=== PATIENT | male | born 1940 | race Caucasian/White ===

== ENCOUNTER → 2019-01-25 13:25 | Outpatient (POV) | payer MEDICARE, SELFPAY | PROVIDERS: Visit Provider Dermatology | DX: L08.9 Local infection of the skin and subcutaneous tissue, unspecified (principal) | CPT/HCPCS: 87070; 87077; 87186; 87205 ==

== ENCOUNTER → 2019-05-10 11:54 | Outpatient (CLI) | payer MEDICARE, OTHER, SELFPAY ==
[2019-05-10 12:24] LABS: Basophils # 0.1 K/mm3 (0-0.2); Basophils % 0.9 % (0.1-2.0); Eosinophils # 0.3 K/mm3 (0.0-0.4); Eosinophils % 4.5 % (0.1-12.0); Hematocrit 26.8 % (42.0-52.0); Lymphocytes # 1.4 K/mm3 (0.7-4.5); Lymphocytes % 18.2 % (10-50); Mean Corpuscular HGB Conc 29.7 g/dL (31.8-35.4); Mean Corpuscular Volume 87.4 fl (80-94); Mean Platelet Volume 8.6 fl (7.4-10.4); Monocytes # 0.4 K/mm3 (0.1-1.0); Monocytes % 4.8 % (1.7-9.3); Neutrophils # 5.4 K/mm3 (1.8-7.8); Neutrophils % 71.5 % (37.0-80.0); Platelet Count 313 K/mm3 (142-424); Red Blood Count 3.07 M/mm3 (4.60-6.20); Red Cell Distribution Width 15.3 % (11.5-17.5); White Blood Count 7.6 K/mm3 (4.8-10.8)
[2019-05-10 14:06] LABS: Alanine Aminotransferase 15 U/L (12-78); Albumin Level 3.7 gm/dL (3.4-5.0); Albumin/Globulin Ratio 1.2 (1.1-1.8); Alkaline Phosphatase 140 U/L (46-116); Anion Gap 15.7 mEq/L (5-15); Aspartate Amino Transferase 11 U/L (15-37); Bilirubin,Total 0.3 mg/dL (0.2-1.0); Blood Urea Nitrogen 21 mg/dL (7-18); C-Reactive Protein 0.6 mg/dL (0.0-0.9); Calcium 8.7 mg/dL (8.5-10.1); Carbon Dioxide 22 mmol/L (21.0-32.0); Chloride 104 mmol/L (98-107); Estimated Glomerular Filt Rate 59 ml/min (>60); GFR (African American) 71 ML/MIN (>60); Globulin 3.2 gm/dl (1.3-3.2); Glucose 142 mg/dL (74-106); Potassium 4.7 mmoL/L (3.5-5.1); Sodium 137 mmol/L (136-145); Total Protein,Serum 6.9 gm/dL (6.4-8.2)
[2019-05-10 14:14] LABS: Erythrocyte Sedimentation Rate 71 mm/hr (0-20)
== END ==
PROVIDERS: Visit Provider Podiatrist
DX: L84 Corns and callosities (principal); E11.42 Type 2 diabetes mellitus with diabetic polyneuropathy
CPT/HCPCS: 36415; 80053; 83036; 85025; 85651; 86140; 87070; 87077; 87186; 87205

== ENCOUNTER → 2019-05-10 17:36 | Outpatient (CLI) | payer MEDICARE, OTHER, SELFPAY | PROVIDERS: Visit Provider Podiatrist | DX: E11.42 Type 2 diabetes mellitus with diabetic polyneuropathy (principal); Z79.84 Long term (current) use of oral hypoglycemic drugs; L84 Corns and callosities | CPT/HCPCS: 36415; 80053; 83036; 85025; 85651; 86140; 87070; 87077; 87186; 87205 ==

== ENCOUNTER → 2019-06-08 10:38 | Outpatient (CLI) | payer MEDICARE, SELFPAY | PROVIDERS: Visit Provider Nurse Practitioner | DX: Z51.89 Encounter for other specified aftercare (principal); E11.9 Type 2 diabetes mellitus without complications; Z79.84 Long term (current) use of oral hypoglycemic drugs | CPT/HCPCS: 87070; 87077; 87186; 87205 ==

== ENCOUNTER → 2019-10-03 14:28 | Outpatient (CLI) | payer MEDICARE, SELFPAY ==
[2019-10-03 14:47] LABS: Basophils % 0.8 % (0.1-2.0); Eosinophils # 0.2 K/mm3 (0.0-0.4); Eosinophils % 3.8 % (0.1-12.0); Hematocrit 31.6 % (42.0-52.0); Hemoglobin 10.1 g/dL (14.1-18.0); Lymphocytes # 1.3 K/mm3 (0.7-4.5); Lymphocytes % 23.1 % (10-50); Mean Corpuscular HGB Conc 31.9 g/dL (31.8-35.4); Mean Corpuscular Hemoglobin 28.1 pg (27.0-31.2); Mean Corpuscular Volume 88.1 fl (80-94); Mean Platelet Volume 9.6 fl (7.4-10.4); Monocytes # 0.3 K/mm3 (0.1-1.0); Monocytes % 4.7 % (1.7-9.3); Neutrophils # 3.9 K/mm3 (1.8-7.8); Neutrophils % 67.5 % (37.0-80.0); Platelet Count 205 K/mm3 (142-424); Red Blood Count 3.58 M/mm3 (4.60-6.20); Red Cell Distribution Width 17.1 % (11.5-17.5); White Blood Count 5.7 K/mm3 (4.8-10.8)
[2019-10-03 15:15] LABS: Erythrocyte Sedimentation Rate 19 mm/hr (0-20)
[2019-10-03 17:22] LABS: Alanine Aminotransferase 13 U/L (12-78); Albumin Level 4.1 g/dl (3.5-5.0); Albumin/Globulin Ratio 1.7 (1.1-1.8); Alkaline Phosphatase 76 U/L (38-126); Anion Gap 15.4 mEq/L (5-15); Aspartate Amino Transferase 18 U/L (17-59); Blood Urea Nitrogen 25 mg/dl (9-20); Calcium 9.4 mg/dl (8.4-10.2); Carbon Dioxide 23 mmol/L (22.0-30.0); Chloride 104 mmol/L (98-107); Estimated Glomerular Filt Rate 65 ml/min (>60); GFR (African American) 78 ML/MIN (>60); Globulin 2.4 g/dL (1.3-3.2); Glucose 183 mg/dl (74-100); Potassium 4.4 mmoL/L (3.5-5.1); Sodium 138 mmol/L (136-145); Total Protein,Serum 6.5 g/dl (6.3-8.2)
[2019-10-03 17:26] LABS: Bilirubin,Total < 0.1 mg/dl (0.2-1.3)
[2019-10-03 17:28] LABS: C-Reactive Protein 0.4 mg/L (0-4)
[2019-10-03 20:20] LABS: Hemoglobin A1C 6.8 % (4.0-6.0)
== END ==
PROVIDERS: Visit Provider Podiatrist
DX: Z51.89 Encounter for other specified aftercare (principal); L98.9 Disorder of the skin and subcutaneous tissue, unspecified; E11.42 Type 2 diabetes mellitus with diabetic polyneuropathy; Z79.84 Long term (current) use of oral hypoglycemic drugs
CPT/HCPCS: 36415; 80053; 83036; 85025; 85651; 86140

== ENCOUNTER → 2022-05-12 15:06 | Outpatient (CLI) | payer MEDICARE, SELFPAY ==
--- NOTE | 2022-05-12 15:12 | XR_ITS ---
FINAL REPORT CLINICAL HISTORY: COUGH FINDINGS: Two views of the chest were obtained. The heart size and pulmonary vascularity are within normal limits. The mediastinum is normal. No acute pulmonary abnormality is identified. There is no pneumothorax. The bony thorax is intact. IMPRESSION: No active cardiopulmonary disease. Reviewed, Interpreted and Dictated by Ben Quiroga III, MD Transcribed by Mayra Calixto Authenticated and [facility]
== END ==
PROVIDERS: PCP Family Medicine; Visit Provider Family Medicine
DX: R05.9 Cough, unspecified (principal)
CPT/HCPCS: 71046

== ENCOUNTER → 2023-02-24 23:37 | Outpatient (CLI) | payer MEDICARE, SELFPAY ==
[2023-02-24 18:55] LABS: Basophils % 0.7 % (0.1-2.0); Eosinophils # 0.7 K/mm3 (0.0-0.4); Eosinophils % 11.2 % (0.1-12.0); Hemoglobin 10.2 g/dL (14.1-18.0); Lymphocytes % 16.5 % (10-50); Mean Corpuscular Hemoglobin 29.4 pg (27.0-31.2); Mean Corpuscular Volume 94.8 fl (80-94); Mean Platelet Volume 9.2 fl (7.4-10.4); Monocytes # 0.4 K/mm3 (0.1-1.0); Monocytes % 6.2 % (1.7-9.3); Neutrophils % 65.5 % (37.0-80.0); Platelet Count 209 K/mm3 (142-424); Red Blood Count 3.48 M/mm3 (4.60-6.20); Red Cell Distribution Width 14.9 % (11.5-17.5); White Blood Count 6.1 K/mm3 (4.8-10.8)
[2023-02-24 18:56] LABS: Alanine Aminotransferase 14 U/L (12-78); Albumin Level 3.8 g/dl (3.5-5.0); Albumin/Globulin Ratio 1.4 (1.1-1.8); Alkaline Phosphatase 152 U/L (38-126); Aspartate Amino Transferase 17 U/L (17-59); Bilirubin,Total 0.2 mg/dl (0.2-1.3); Blood Urea Nitrogen 33 mg/dl (9-20); Calcium 8.9 mg/dl (8.4-10.2); Carbon Dioxide 20 mmol/L (22.0-30.0); Chloride 108 mmol/L (98-107); Chol/HDL Ratio 2.6 (1-3.5); Cholesterol 118 mg/dl (140-200); Estimated Glomerular Filt Rate 42 ml/min (>60); GFR (African American) 50 ML/MIN (>60); Globulin 2.8 g/dL (1.3-3.2); Glucose 100 mg/dl (74-100); HDL Cholesterol 46 mg/dl (40-60); Sodium 136 mmol/L (136-145); Total Protein,Serum 6.6 g/dl (6.3-8.2); Triglycerides 95 mg/dl (30-150); VLDL Cholesterol 19 mg/dL (0-40)
[2023-02-24 19:07] LABS: Direct LDL Cholesterol 51.63 mg/dL (100-129)
[2023-02-24 19:16] LABS: 25-OH Vitamin D, Total 34.4 ng/mL (30-100)
[2023-02-24 19:25] LABS: Hemoglobin A1C 6.6 % (4.0-6.0)
[2023-02-24 19:30] LABS: Prostate Specific Ag Screen 2.1 ng/ml (0.0-4.0); Thyroid Stimulating Hormone 2.79 uIU/mL (0.465-4.68)
[2023-02-24 20:49] LABS: Anion Gap 13.7 mEq/L (5-15); Potassium 5.7 mmoL/L (3.5-5.1)
== END ==
PROVIDERS: PCP Emergency Medicine; Visit Provider Emergency Medicine
DX: E55.9 Vitamin D deficiency, unspecified (principal); E11.42 Type 2 diabetes mellitus with diabetic polyneuropathy; Z12.5 Encounter for screening for malignant neoplasm of prostate; Z79.84 Long term (current) use of oral hypoglycemic drugs; Z79.899 Other long term (current) drug therapy
CPT/HCPCS: 80053; 80061; 82306; 83036; 84436; 84443; 85025; G0103

== ENCOUNTER 2023-09-29 15:07 | Outpatient (POV) | payer MEDICARE, SELFPAY | END 2023-09-29 23:59 | disposition home or self-care (01) | LOC: SC 15:08 | PROVIDERS: PCP Internal Medicine; Visit Provider Dermatology | DX: Z00.00 Encounter for general adult medical examination without abnormal findings (principal) ==

== ENCOUNTER 2024-11-10 11:04 | Inpatient (IN) | payer MEDICARE, SELFPAY ==
[2024-11-10] VITALS (8 sets, daily range): BP systolic 146–177; BP diastolic 62–91; PULSE 65–78; RESP 14–20; TEMP 36.6–36.8; O2SAT 97–99; BMI 24.7; BMI 20.9
--- NOTE | 2024-11-10 11:13 | ECG_ITS ---
APPROVED REPORT Exam: Resting ECG HR:74 bpm ECG Measurements Heart Rate 74 AXES QRSd 110 QRS -25 QT 414 T 10 QTc 442 Conclusion SUPRAVENTRICULAR RHYTHM INCOMPLETE RIGHT BUNDLE BRANCH BLOCK [90+ ms QRS DURATION, TERMINAL R IN V1/V2, 40+ ms S IN I/aVL/V4/V5/V6] POSSIBLE LEFT VENTRICULAR HYPERTROPHY [VOLTAGE CRITERIA PLUS LAE OR QRS WIDENING] POSSIBLE SEPTAL MYOCARDIAL INFARCTION , OF INDETERMINATE AGE [30 ms Q WAVE IN V1/V2] ABNORMAL ECG Electronically signed by : CHRISTY BECKER, 11/11/2024 07:37:25
--- NOTE | 2024-11-10 11:17 | HMH.EDGENADL ---
Discharge Plan Disposition Patient Disposition: Admitted Chief Complaint: Weakness Clinical Impressions Clinical Impression: Elevated troponin I level, Hypomagnesemia, Acute hypokalemia, Declining functional status, Venous stasis dermatitis, CKD (chronic kidney disease) Discharge ED Provider: Cory Florian General Adult HPI General Chief complaint: Weakness Stated complaint: Generalized weakness for 1 wk/A&Ox4 Time Seen by Provider: 11/10/24 11:09 History of Present Illness HPI narrative: Patient is a 84-year-old male with past medical history of hypertension, insulin-dependent diabetes, clubfoot who presents emergency department via EMS for evaluation of global weakness. History is obtained by EMS, normally he is full assist with his and rolls around in a computer chair however he is able to provide some effort to help. Over the last week he has been largely unable to help himself transfer resulting in inability to complete his activities of daily living. cannot help the level of care he needs. He has no acute complaints other than global weakness. Please note that above description of symptoms, in this electronic medical record under categorization of recalled from ER triage doctor by RN are reflective of an initial nursing assessment, however, is not reflective of my full history and physical exam that was personally taken and clarified. Consequentially, this preceding description of symptoms, which may include the patient's categorized chief complaint in the EMR, do not reflect my personal clinical impression, and the ultimate description of history of present illness and patient stated complaints should be deferred to this section of the note. Unless stated otherwise or congruent with this section of the note, additional signs, symptoms, or incongruence should be interpreted as inaccurate with my clinical impression. Related Data Home Medications ?Medication ?Instructions ?Recorded ?Confirmed aspirin 81 mg tablet,delayed 81 mg PO DAILY heart health 09/21/17 11/10/24 release (Adult Low Dose Aspirin) metformin 1,000 mg tablet 1,000 mg PO BID DM 09/21/17 11/10/24 furosemide 40 mg tablet 40 mg PO DAILY 11/10/24 11/10/24 potassium chloride 10 mEq 10 meq PO DAILY 11/10/24 11/10/24 tablet,extended release(part/cryst) Previous Rx's ?Medication ?Instructions ?Recorded hydroxyzine pamoate 25 mg capsule 25 mg PO BID PRN itching #40 caps 05/12/23 (Vistaril) benazepril 40 mg tablet 40 mg PO DAILY htn #90 tabs 06/02/23 ferrous sulfate 325 mg (65 mg 325 mg PO DAILY iron deficiency 06/02/23 iron) tablet (iron) #90 tabs lovastatin 20 mg tablet 20 mg PO QHS cho #90 tabs 06/02/23 metoprolol tartrate 100 mg tablet 100 mg PO BID htn #180 tabs 06/02/23 omeprazole 20 mg capsule,delayed 20 mg PO ONCE GERD #90 caps 06/02/23 release terazosin 5 mg capsule 5 mg PO QHS bp #90 caps 06/02/23 triamterene 37.5 1 tab PO QAM htn #90 tabs 06/02/23 mg-hydrochlorothiazide 25 mg tablet Allergies Allergy/AdvReac Type Severity Reaction Status Date / Time No Known Allergies Allergy Unverified 02/24/23 14:51 [facility] Disclaimer: The information contained in this section may have been updated after the patient was seen, as this information can be updated by other users. 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 Social History Smoking Status: Never smoker alcohol intake: never substance use type: denies use current occupational status: retired Travel in the last 8 weeks: None household members: spouse housing: house Have you lived/traveled outside US in past 30 days?: No Contact w/someone who lives/traveled outside US past 30 days?: No Exposure to someone with infectious disease in past 14 days?: No Do you have a fever (greater than 100.4 F or 38 C)?: No Have you tested positive for COVID-19: No Exposed to someone with COVID-19 in past 14 days?: No Do you have a sore throat?: No Do you have a cough?: No Do you have any weakness?: Yes Do you have any diarrhea?: No Are you experiencing any unusual bleeding?: No Do you have any muscle aches/pain?: No Do you have any abdominal pain?: No Are you experiencing loss of taste or smell?: No Other Medical History Have you received the Flu Vaccine for this season: Yes Have you received the Pneumonia Vaccine: Yes ROS Obtained: Yes Systems reviewed as appropriate & no additional complaints except as documented Physical Exam General General appearance: alert and in no apparent distress Head Head exam: atraumatic and normocephalic Eye Eye exam: Present PERRL and EOMI ENT ENT exam: Present mucous membranes moist Neck Neck exam: Present normal inspection Chest Chest inspection: Present normal inspection, symmetric chest wall rise and other (Slight bruising right inferior lateral chest wall) Respiratory Respiratory exam: Present normal lung sounds bilaterally; Absent respiratory distress Cardiovascular Cardiovascular exam: Present regular rate and normal rhythm Abdominal Exam Abdominal exam: Present soft; Absent tenderness, guarding or rebound Extremities Exam Extremities exam: Present normal inspection Neurological Exam Neurological exam: Present alert and other (Able to raise all extremities against gravity); Absent motor sensory deficit Psychiatric Psychiatric exam: Present normal affect Skin Skin exam: Present warm, dry and other (Chronic findings of the lower extremities consistent with stasis dermatitis. Stage II decubitus ulcer over the sacral area without fluctuance) Medical Decision Making Medical Records Screening: Per USPSTF and CDC recommendations, given the prevalence of disease in our region, it is our hospital?s policy to screen for HIV and viral Hepatitis for all patients aged 18 and over and those with ongoing risk factors. Juan M Inquiry Pt receiving controlled substance: No Vital Signs: 11/10/24 11:35 11/10/24 11:40 11/10/24 12:00 Temperature 98.2 F Temperature Source Oral Pulse Rate 76 70 Pulse Rate [Left Radial] 72 Respiratory Rate 16 18 14 Blood Pressure 170/70 H 155/65 H Blood Pressure [Right Arm] 170/70 H Blood Pressure Mean 106 95 Blood Pressure Mean [Right Arm] 103 02 Sat by Pulse Oximetry 97 98 99 Oxygen Delivery Method Room Air 11/10/24 12:30 Temperature Temperature Source Pulse Rate 70 Pulse Rate [Left Radial] Respiratory Rate 16 Blood Pressure 146/62 H Blood Pressure [Right Arm] Blood Pressure Mean 90 Blood Pressure Mean [Right Arm] 02 Sat by Pulse Oximetry 98 Oxygen Delivery Method Lab Data Lab Results 11/10/24 11:05: WBC 8.5, RBC 2.80 L, Hgb 8.1 L, Hct 24.4 L, MCV 87.1, MCH 28.9, MCHC 33.2, RDW 13.8, Plt Count 303, MPV 10.4, Neut % (Auto) 80.4 H, Lymph % (Auto) 9.2 L, [place] % (Auto) 6.2, Eos % (Auto) 3.1, Baso % (Auto) 0.6, Neut # (Auto) 6.9, Lymph # (Auto) 0.8, [place] # (Auto) 0.5, Eos # (Auto) 0.3, Baso # (Auto) 0.1, Sodium 137, Potassium 3.1 L, Chloride 99, Carbon Dioxide 30, Anion Gap 11.1, BUN 35 H, Creatinine 1.90 H, Estimated GFR 34 L, Est GFR ( Amer) 41 L, Glucose 158 H, Calcium 6.9 L, Magnesium 0.7 L, Total Bilirubin 0.5, AST 33, ALT 19, Alkaline Phosphatase 164 H, Troponin I 0.14 H, Total Protein 6.8, Albumin 3.2 L, Globulin 3.6 H, Albumin/Globulin Ratio 0.9 L, TSH 2.17, Free T4 1.73 11/10/24 11:23: SARS-CoV-2 (PCR) Not detected, Influenza A Untype (PCR) Not detected, Influenza Type B (PCR) Not detected 11/10/24 11:05 11/10/24 11:05 Orders (Tests/Meds): ED MEDICATIONS Discontinued Medications Generic Name Dose Route Start Last Admin Trade Name Freq PRN Reason Stop Dose Admin Magnesium Sulfate 2 gm in 50 mls @ 50 mls/hr 11/10/24 11:36 11/10/24 11:54 Magnesium Sulfate 2gm/50ml Premix IV 11/10/24 12:35 50 mls/hr ONCE ONE Administration Potassium Chloride 40 meq 11/10/24 12:18 11/10/24 12:23 Potassium Chloride 20meq Tab PO 11/10/24 12:19 40 meq ONCE ONE Administration ORDERS Category Date Time Status CBC w/Auto Diff [Complete Blood Count Auto Diff] Stat Lab 11/10/24 11:05 Completed CMP [Comprehensive Metabolic Panel] Stat Lab 11/10/24 11:05 Completed Free T4 (Free Thyroxine) Stat Lab 11/10/24 11:05 Completed MG [Magnesium] Stat Lab 11/10/24 11:05 Completed Rapid PCR Covid and Flu A/B Stat Lab 11/10/24 11:23 Completed TSH [Thyroid Stimulating Hormone] Stat Lab 11/10/24 11:05 Completed Trop I [Troponin I] Stat Lab 11/10/24 11:05 Completed Troponin I Q3H Lab 11/10/24 14:15 Ordered Troponin I Q3H Lab 11/10/24 17:15 Ordered UA [Urinalysis and Microscopic] Stat Lab 11/10/24 11:10 Ordered ECG Data Tracing #1: Independently inter by me rate 74, rhythm is regular, axis is normal, no ST elevation in anatomical contiguous leads, chatter in the septal leads QTc 442 Tracing #2: Independently inter by me rate of 67, rhythm is regular, axis is leftward deviated, no significant ST elevation in anatomical contiguous leads, QTc 457 Medical Decision Narrative: In summary patient is 84-year-old male with past medical history described above presents emerged part for evaluation weakness. Patient is hemodynamically stable nontoxic-appearing upon arrival, afebrile. I suspect this is acute on chronic functional decline. Workup for metabolic derangement will be conducted with hematologic labs, urinalysis will be obtained. Initial workup reviewed by me, patient has chronic nontransfusable anemia no significant leukocytosis, mild hypokalemia and critical hypomagnesemia which will be repleted, CKD slightly worse than normal no definition for PARI per rifle criteria, initial troponin is elevated in the setting of CKD, patient does not have any chest pain. Repeat EKG has no significant dynamic changes. Viral swab negative. Thyroid studies normal. Given this the case was discussed with Dr. Williamson regarding management, we will trend troponins, replete his electrolytes, have physical therapy and case management evaluate. Patient was admitted in stable condition. Critical Care Critical Care Time Critical Care Time: Yes Attestation: On 11/10/24, the high probability of a clinically significant, sudden or life threatening deterioration of the following system(s) required my full and direct attention, intervention and personal management. The time I documented below is in addition to time spent performing reported procedures but includes the following listed in this critical care notation. Total Time Total Critical Care Time: 35
[2024-11-10 11:18] LABS: Basophils # 0.1 K/mm3 (0-0.2); Basophils % 0.6 % (0.1-2.0); Eosinophils # 0.3 K/mm3 (0.0-0.4); Eosinophils % 3.1 % (0.1-12.0); Hematocrit 24.4 % (42.0-52.0); Hemoglobin 8.1 g/dL (14.1-18.0); Lymphocytes # 0.8 K/mm3 (0.7-4.5); Lymphocytes % 9.2 % (10-50); Mean Corpuscular HGB Conc 33.2 g/dL (31.8-35.4); Mean Corpuscular Hemoglobin 28.9 pg (27.0-31.2); Mean Corpuscular Volume 87.1 fl (80-94); Mean Platelet Volume 10.4 fl (7.4-10.4); Monocytes # 0.5 K/mm3 (0.1-1.0); Monocytes % 6.2 % (1.7-9.3); Neutrophils # 6.9 K/mm3 (1.8-7.8); Neutrophils % 80.4 % (37.0-80.0); Nucleated Red Blood Cells # 0 10^3/uL; Nucleated Red Blood Cells % 0 %; Platelet Count 303 K/mm3 (142-424); Red Cell Distribution Width 13.8 % (11.5-17.5); Red Cell Distribution Width-SD 44.3 fL; White Blood Count 8.5 K/mm3 (4.8-10.8)
[2024-11-10 11:19] LABS: Albumin Level 3.2 g/dl (3.5-5.0); Chloride 99 mmol/L (98-107); Potassium 3.1 mmoL/L (3.5-5.1); Sodium 137 mmol/L (136-145)
[2024-11-10 11:22] LABS: Alanine Aminotransferase 19 U/L (12-78); Albumin/Globulin Ratio 0.9 (1.1-1.8); Alkaline Phosphatase 164 U/L (38-126); Anion Gap 11.1 mEq/L (5-15); Aspartate Amino Transferase 33 U/L (17-59); Bilirubin,Total 0.5 mg/dl (0.2-1.3); Blood Urea Nitrogen 35 mg/dl (9-20); Calcium 6.9 mg/dl (8.4-10.2); Carbon Dioxide 30 mmol/L (22.0-30.0); Estimated Glomerular Filt Rate 34 ml/min (>60); GFR (African American) 41 ML/MIN (>60); Globulin 3.6 g/dL (1.3-3.2); Glucose 158 mg/dl (74-100); Total Protein,Serum 6.8 g/dl (6.3-8.2)
[2024-11-10 11:30] LABS: Coronavirus 19, PCR Not Detected (NotDetected); Influenza A, PCR Not Detected (NotDetected); Influenza B, PCR Not Detected (NotDetected)
[2024-11-10 11:32] LABS: Magnesium 0.7 mg/dl (1.6-2.3)
[2024-11-10 11:35] LABS: Troponin I 0.14 ng/ml (0.00-0.034)
[2024-11-10 11:49] LABS: Free T4 (Free Thyroxine) 1.73 ng/dl (0.78-2.19)
--- NOTE | 2024-11-10 11:51 | PC.NURSE ---
patient provided with full bed bath and clean clothes and new dressings placed on wounds, pt had dried stool in various locations all over body, provided warm blankets and call victoria and pt denies any needs at this time awaiting test results
[2024-11-10 11:54] LABS: Thyroid Stimulating Hormone 2.17 uIU/mL (0.465-4.68)
[2024-11-10] MEDS: MAGNESIUM SULFATE IN WATER 2 GM/50 ML PIGGYBACK IV ×2 (11:54→23:41)
[2024-11-10] MEDS: POTASSIUM CHLORIDE 20MEQ TAB 40 MEQ PO (12:23)
--- NOTE | 2024-11-10 12:35 | ECG_ITS ---
APPROVED REPORT Exam: Resting ECG HR:67 bpm ECG Measurements Heart Rate 67 AXES QRSd 110 QRS -34 QT 442 T -8 QTc 457 Conclusion SUPRAVENTRICULAR RHYTHM LEFT AXIS DEVIATION [QRS AXIS < -30] INCOMPLETE RIGHT BUNDLE BRANCH BLOCK [90+ ms QRS DURATION, TERMINAL R IN V1/V2, 40+ ms S IN I/aVL/V4/V5/V6] MINIMAL VOLTAGE CRITERIA FOR LVH, CONSIDER NORMAL VARIANT [MEETS CRITERIA IN ONE OF: R(aVL), S(V1), R(V5), R(V5/V6)+S(V1)] POSSIBLE SEPTAL MYOCARDIAL INFARCTION , PROBABLY OLD [30 ms Q WAVE IN V1/V2] ABNORMAL ECG Electronically signed by : CHRISTY BECKER, 11/11/2024 07:38:42
--- NOTE | 2024-11-10 12:44 | PC.NURSE ---
DR BECKER SPEAKING WITH DR MARTINEZ FOR ADMISSION OF DR VIERA PT
--- NOTE | 2024-11-10 12:48 | PC.NURSE ---
[facility] NOTIFIED OF ADMISSION
--- NOTE | 2024-11-10 13:11 | PC.NURSE ---
called report to ajit woodruff on 2nd floor and answered all questions
[2024-11-10 15:19] LABS: Troponin I 0.14 ng/ml (0.00-0.034)
[2024-11-10 17:56] LABS: Troponin I 0.14 ng/ml (0.00-0.034)
[2024-11-10] MEDS: 0.9 % SODIUM CHLORIDE 1000ML 1,000 ML 75 ML IV (23:40)
[2024-11-11 04:00] VITALS: BP 165/55; PULSE 75; RESP 16; TEMP 37.5; O2SAT 96; BMI 25.1
[2024-11-11 05:56] LABS: POC Glucose,Bedside 150 (70-110)
[2024-11-11 05:56] LABS: Chloride 100 mmol/L (98-107); Potassium 3.3 mmoL/L (3.5-5.1); Sodium 135 mmol/L (136-145)
[2024-11-11 05:59] LABS: Blood Urea Nitrogen 34 mg/dl (9-20); Estimated Glomerular Filt Rate 36 ml/min (>60); GFR (African American) 44 ML/MIN (>60)
[2024-11-11 06:00] LABS: Anion Gap 10.3 mEq/L (5-15); Calcium 6.7 mg/dl (8.4-10.2); Carbon Dioxide 28 mmol/L (22.0-30.0); Glucose 143 mg/dl (74-100); Magnesium 1.3 mg/dl (1.6-2.3)
[2024-11-11 06:13] LABS: Creatinine Clearance Estimated 37 mL/min (50-200)
--- NOTE | 2024-11-11 06:46 | PC.NURSE ---
Pt. is alert and orientated x 4. Pt. is on room air. Pt. was admitted yesterday for weakness and fuctional decline. Pt. lives at home with , was getting around the house in a rolling computer chair but got so weak he was unable to assist himself and his was unable to help him. Pt. has multiple skin issues, pictures in the chart. Pt. denies any pain or SOA. Pt. has had no needs overnight. Pt. slept well. Purewick in place. Personal items and call victoria in reach.
[2024-11-11 07:23] LABS: Microscopic, Urine URINE MICROSCOPIC (MICROSCOPIC)
[2024-11-11 07:55] VITALS: BP 166/65; PULSE 80; RESP 19; TEMP 36.4; O2SAT 96
[2024-11-11 07:56] LABS: Appearance,Urine CLEAR (Clear); Bilirubin,Urine Negative (Negative); Blood, Urine Negative (Negative); Color,Urine YELLOW (Yellow); Glucose,Urine (UA) Negative (Negative); Ketones,Urine Negative (Negative); Leukocyte Esterase,Urine Negative (Negative); Nitrate,Urine Negative (Negative); PH,Urine 5.5 (5.0-8.5); Protein,Urine 1+ (Negative)
--- NOTE | 2024-11-11 08:45 | EXP.HP ---
History of Present Illness *Admission Date: 11/10/24 *Reason for visit:: weakness *History of present illness: Patient is a 84-year-old male with past medical history of hypertension, insulin-dependent diabetes, clubfoot who presents emergency department via EMS for evaluation of global weakness. History is obtained by EMS, normally he is full assist with his and rolls around in a computer chair however he is able to provide some effort to help. Over the last week he has been largely unable to help himself transfer resulting in inability to complete his activities of daily living. cannot help the level of care he needs. He has no acute complaints other than global weakness (above as per ER physician) [facility] Disclaimer: The information contained in this section may have been updated after the patient was seen, as this information can be updated by other users. 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, without long-term current use of insulin Onychomycosis Diabetes mellitus Surgical History 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 Family History (Updated 11/11/24 @ 09:07 by SRINIVASAN Vasquez) Other Coronary artery disease Diabetes Stroke Social History (Updated 11/10/24 @ 13:52 by Brianne Fiore RN) Smoking Status: Never smoker alcohol intake: never substance use type: denies use current occupational status: retired Travel in the last 8 weeks: None household members: spouse housing: house Have you lived/traveled outside US in past 30 days?: No Contact w/someone who lives/traveled outside US past 30 days?: No Exposure to someone with infectious disease in past 14 days?: No Do you have a fever (greater than 100.4 F or 38 C)?: No Have you tested positive for COVID-19: No Exposed to someone with COVID-19 in past 14 days?: No Do you have a sore throat?: No Do you have a cough?: No Do you have any weakness?: Yes Are you experiencing any nausea/vomitting?: No Do you have any diarrhea?: No Are you experiencing any unusual bleeding?: No Do you have any muscle aches/pain?: No Do you have any abdominal pain?: No Are you experiencing loss of taste or smell?: No Other Medical History Have you received the Flu Vaccine for this season: No Have you received the Pneumonia Vaccine: No Review of Systems Constitutional Constitutional: Denies fatigue, Denies headache(s) and Denies weakness Eyes Eyes: Denies blurry vision and Denies diplopia ENT Ears, Nose, Mouth, and Throat: Denies headache(s), Denies nasal congestion, Denies sore throat and Denies vertigo *Cardiovascular Cardiovascular: Denies chest pain, Denies dyspnea and Denies leg edema *Respiratory Respiratory: Denies cough and Denies dyspnea *Gastrointestinal Gastrointestinal: Denies abdominal pain, Denies loose stools, Denies nausea and Denies vomiting *Genitourinary Genitourinary: Denies difficulty urinating and Denies dysuria *Musculoskeletal Musculoskeletal: Reports arthralgias, Reports muscle weakness and Denies myalgias *Neurologic Neurologic: Denies headache(s), Denies vertigo and Denies weakness Endocrine Endocrine: Denies fatigue Meds Home Medications and Allergies Home Medications ?Medication ?Instructions ?Recorded ?Confirmed ?Type aspirin 81 mg tablet,delayed 81 mg PO DAILY heart health 09/21/17 11/10/24 History release (Adult Low Dose Aspirin) metformin 1,000 mg tablet 1,000 mg PO BID DM 09/21/17 11/10/24 History hydroxyzine pamoate 25 mg capsule 25 mg PO BID PRN itching #40 caps 05/12/23 11/10/24 Rx (Vistaril) benazepril 40 mg tablet 40 mg PO DAILY htn #90 tabs 06/02/23 11/10/24 Rx ferrous sulfate 325 mg (65 mg 325 mg PO DAILY iron deficiency 06/02/23 11/10/24 Rx iron) tablet (iron) #90 tabs lovastatin 20 mg tablet 20 mg PO QHS cho #90 tabs 06/02/23 11/10/24 Rx metoprolol tartrate 100 mg tablet 100 mg PO BID htn #180 tabs 06/02/23 11/10/24 Rx omeprazole 20 mg capsule,delayed 20 mg PO ONCE GERD #90 caps 06/02/23 11/10/24 Rx release terazosin 5 mg capsule 5 mg PO QHS bp #90 caps 06/02/23 11/10/24 Rx triamterene 37.5 1 tab PO QAM htn #90 tabs 06/02/23 11/10/24 Rx mg-hydrochlorothiazide 25 mg tablet furosemide 40 mg tablet 40 mg PO DAILY 11/10/24 11/10/24 History potassium chloride 10 mEq 10 meq PO DAILY 11/10/24 11/10/24 History tablet,extended release(part/cryst) New Prescriptions to Start Prescriptions: Allergies Allergy/AdvReac Type Severity Reaction Status Date / Time No Known Allergies Allergy Unverified 02/24/23 14:51 Exam Data for Last 24 hours Vital signs and Labs for Last 24 Hours: Temp Pulse Resp BP Pulse Ox O2 Del Method 97.5 F L 80 19 166/65 H 96 Room Air 11/11/24 07:55 11/11/24 07:55 11/11/24 07:55 11/11/24 07:55 11/11/24 07:55 11/11/24 07:55 Laboratory Results - last 24 hr 11/10/24 07:15: Urine Color Yellow, Urine Appearance Clear, Urine pH 5.5, Ur Specific [place] 1.020, Urine Protein 1+ A, Urine Glucose (UA) Negative, Urine Ketones Negative, Urine Blood Negative, Urine Nitrate Negative, Urine Bilirubin Negative, Urine Urobilinogen 1.0, Ur Leukocyte Esterase Negative, Urine RBC None, Urine WBC None, Ur Squamous Epith Cells None, Urine Bacteria None 11/10/24 11:05: WBC 8.5, RBC 2.80 L, Hgb 8.1 L, Hct 24.4 L, MCV 87.1, MCH 28.9, MCHC 33.2, RDW 13.8, Plt Count 303, MPV 10.4, Neut % (Auto) 80.4 H, Lymph % (Auto) 9.2 L, [place] % (Auto) 6.2, Eos % (Auto) 3.1, Baso % (Auto) 0.6, Neut # (Auto) 6.9, Lymph # (Auto) 0.8, [place] # (Auto) 0.5, Eos # (Auto) 0.3, Baso # (Auto) 0.1, Sodium 137, Potassium 3.1 L, Chloride 99, Carbon Dioxide 30, Anion Gap 11.1, BUN 35 H, Creatinine 1.90 H, Estimated GFR 34 L, Est GFR ( Amer) 41 L, Glucose 158 H, Calcium 6.9 L, Magnesium 0.7 L, Total Bilirubin 0.5, AST 33, ALT 19, Alkaline Phosphatase 164 H, Troponin I 0.14 H, Total Protein 6.8, Albumin 3.2 L, Globulin 3.6 H, Albumin/Globulin Ratio 0.9 L, TSH 2.17, Free T4 1.73 11/10/24 11:23: SARS-CoV-2 (PCR) Not detected, Influenza A Untype (PCR) Not detected, Influenza Type B (PCR) Not detected 11/10/24 14:25: Troponin I 0.14 H 11/10/24 17:25: Troponin I 0.14 H 11/11/24 05:27: Sodium 135 L, Potassium 3.3 L, Chloride 100, Carbon Dioxide 28, Anion Gap 10.3, BUN 34 H, Creatinine 1.80 H, Estimated Creat Clear 37, Estimated GFR 36 L, Est GFR ( Amer) 44 L, Glucose 143 H, Calcium 6.7 L, Magnesium 1.3 L D 11/11/24 05:48: POC Glucose 150 H I & O for Last 24 hours: Intake & Output 11/08/24 11/09/24 11/10/24 11/11/24 11:59 11:59 11:59 11:59 Intake Total 545 / 545 Output Total 800 / 800 Balance -255 / -255 Weight 182 lb 185 lb 6.4 oz Constitutional Constitutional: no acute distress *Routine HEENT Exam Head: Present normocephalic and atraumatic Eye: Present EOMI and PERRL ENT: Present mucous membranes moist *Routine Neck Exam Neck: Present supple and full ROM *Routine Respiratory Exam Respiratory: Present CTA bilaterally *Routine Cardiovascular Exam Cardiovascular: Present RRR *Routine Abdominal Exam Abdominal: Present soft and normoactive bowel sounds; Absent tenderness *Routine Rectal Exam Rectal:: deferred *Routine Genitalia Exam Genitalia:: deferred *Routine Extremities Exam Extremities: Absent cyanosis, clubbing or edema *Routine Skin Exam Skin: Present intact; Absent erythema *Routine Neurological Exam Neurological: Present alert and oriented X3 Assessment and Plan *Assessment and plan (1) Hypomagnesemia: Status: Acute Category: Medical Code(s): E83.42 - Hypomagnesemia (2) Acute hypokalemia: Status: Acute Category: Medical Code(s): E87.6 - Hypokalemia (3) CKD (chronic kidney disease): Status: Acute Category: Medical Code(s): N18.9 - Chronic kidney disease, unspecified (4) Declining functional status: Status: Acute Category: Medical Code(s): R53.81 - Other malaise (5) Elevated troponin I level: Status: Acute Category: Medical Code(s): R79.89 - Other specified abnormal findings of blood chemistry (6) Hypertension: Status: Acute Category: Medical Code(s): I10 - Essential (primary) hypertension (7) Type 2 diabetes mellitus with diabetic polyneuropathy, without long-term current use of insulin: Status: Acute Category: Medical Code(s): E11.42 - Type 2 diabetes mellitus with diabetic polyneuropathy (8) 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 He is feeling better this am. Will discuss further care with Dr. Juan. Dr. Juan entry - Saw patient, agree with above note. PT & OT to see patient, he may need placement at time of discharge, replace electrolytes, follow H/H.
[2024-11-11 09:33] VITALS: BMI 25.1
[2024-11-11] MEDS: MAGNESIUM SULFATE IN WATER 2 GM/50 ML PIGGYBACK IV (09:43)
[2024-11-11 10:21] LABS: POC Glucose,Bedside 262 (70-110)
--- NOTE | 2024-11-11 10:23 | SW/DCPLANNER ---
Addendum entered by Liliana Patrick 11/14/24 08:37: Per patient will discharge to [facility] level of care today. I have updated [facility]. I will call and update patient's . Addendum entered by Liliana Patrick 11/14/24 08:02: Per Kelli patient has been approved SNF level of care. I will update MD. Addendum entered by Liliana Patrick 11/11/24 14:05: [facility] is able to accept this patient and start precert today. Original Note: I spoke w/ this patient and his family regarding plans once medically stable for discharge. PT/OT evaluated patient and recommended SNF level of care. Patient is agreeable to placement at this time and prefers [facility]. Patient stated that if [facility] is not available he would be agreeable to [facility]. [facility] and [facility] are not in network w/ patient's insurance at this time. I will continue to follow up w/ , patient and family. Discharge date is unknown at this time.
--- NOTE | 2024-11-11 10:52 | HMH.OTEV ---
OT Inpatient Evaluation Rehab OT IP Evaluation Start: 11/11/24 09:30 Freq: ONCE Status: Active Protocol: Document 11/11/24 10:[address] [facility] (Rec: 11/11/24 10:[address] [facility] [id number]) Rehab OT IP Assessment Subjective History Pt oriented x 3 on arrival. Pt agreeable to engage in therapy evaluation. Pt was admitted on 11/10/24 due to continued global weakness. History and physical: Patient is a 84-year-old male with past medical history of hypertension, insulin- dependent diabetes, clubfoot who presents emergency department via EMS for evaluation of global weakness. History is obtained by EMS, normally he is full assist with his and rolls around in a computer chair however he is able to provide some effort to help. Over the last week he has been largely unable to help himself transfer resulting in inability to complete his activities of daily living. cannot help the level of care he needs. He has no acute complaints other than global weakness Subjective I just haven't been able to walk lately. Pt reports prior to being in the hospital, he lived at home with his . He explains he used to be able to walk with rolling walker, but recently he has not been able to transfer himself at all. He claims he has a wheelchair he has been using, but according to notes he was using a computer chair. Pt also reports he has been requiring assistance with ADLs and dependent upon for completion of all IADLs. Objective Patient Orientation Person,Place,Birthday Right Upper Extremity Gross ROM Min Limitation <25% Left Upper Extremity Gross ROM Min Limitation <25% Shoulder ROM Limitations Muscle Weakness Elbow ROM Limitations Muscle Weakness Wrist Limitations of Range of Motion Muscle Weakness Bed Mobility bed mobility-scooting,bed mobility - supine/sit Assist Level Minimal x 2 (25% assist) Transfer Training Sit/Stand Transfer Assist Level Moderate x 2 (50% assist) Lower Body Dressing Ability Maximum Assistance Rehab OT IP prob,goals,plan Problems Date of Evaluation: 11/11/24 OT IP Problems Bed Mobility,Transfers,Balance ,Self care,Safety Rehab Potential Rehab Potential Good Equipment Needs Assistive Devices Rolling / Wheeled Walker Plan OT intervention Plan Bed Mobility,Transfers,Balance ,Self care,Safety,Therapeutic Exercise OT Plan Frequency Daily Duration LOS Discharge Goals Bed Mobility Ability Assistance x1 Sit to Stand Chair Transfer Ability Moderate x 1 (50% assist) Chair Transfer Ability Moderate x 1 (50% assist) Chair Transfer Technique Sit to/from Ambulatory Chair Transfer Assistive Devices Rolling Walker Feeding Ability Assist with Tray Set Up Lower Body Dressing Ability Moderate Assistance Upper Body Dressing Ability Minimal Assistance Bathing Ability Moderate Assistance Performing Toilet Hygiene Ability Moderate Assistance Overall Commode/Toilet Transfer Ability Moderate Assistance Commode/Toilet Transfer Technique Sit to/from Ambulatory Commode/Toilet Transfer Assistive Grab Bars Devices Oral Care Assist Contact Guard Decrease in Endurance Yes Discharge Plan OT Discharge Plan Pt will continue to be seen for OT services while at [facility]. Pt would benefit most from short term rehab at [facility] following discharge. Continued skilled therapy is important in order for patient to improve strength, safety, endurance, ADL independence, and functional transfers to reach PLOF. Eval Complexity Eval Charge Codes 99589 - Moderate Complexity PHYSICIAN CERTIFICATION: I certify the specified therapy services for Tyson Hawley are required, authorized, and reviewed every 30 days.
--- NOTE | 2024-11-11 11:19 | HMH.PHAINT1 ---
Pharmacy Intervention Comments: MEDICATION RECONCILIATION COMPLETE USING LIST FROM DR VIERA'S OFFICE.
--- NOTE | 2024-11-11 11:46 | HMH.PTEV ---
Physical Therapy Evaluation Rehab PT IP Evaluation Start: 11/11/24 09:10 Freq: ONCE Status: Active Protocol: Document 11/11/24 09:20 [facility] (Rec: 11/11/24 11:45 [facility] [id number]) Subjective/History History History Patient is a 84-year-old male with past medical history of hypertension, insulin- dependent diabetes, clubfoot who presents emergency department via EMS for evaluation of global weakness. Over the last week he has been largely unable to help himself transfer resulting in inability to complete his activities of daily living. cannot help the level of care he needs. He states that he uses a wheelchair in his home. Subjective Subjective Patient presents supine in bed and is willing to participate in therapy this morning. He does not c/o pain at this time . [facility] How much help from another person do you currently need... Turning from your back to your side A little while in a flat bed without using bedrails? Moving from lying on back to sitting on A little the side of a flat bed without using bedrails? Moving to and from a bed to a chair ( A little including a wheelchair)? Standing up from a chair using your arms A lot ? (e.g., wheelchair, bedside chair) Walking in hospital room? A lot Climbing 3-5 steps with a railing? Total Mobility Score 14 Mobility Level [facility] Mobility Calculator Mobility 4 Move to chair/ commode Rehab PT IP Eval Objective Appearance Patient Behavior Appropriate,Cooperative Patient Orientation Person,Place,Time Difficulty following instructions none Speech Pattern Clear,Appropriate Ambulation Patient Able to Ambulate No Balance Ability to Arise Able, uses arms to help Sitting Balance Steady, safe Standing Balance Unsteady Dynamic Sitting Balance Ability Normal Dynamic Standing Balance Ability Poor Transfers Bed Transfer Ability Minimal x 1 (25% assist) Chair Transfer Ability Moderate x 2 (50% assist) Sit to Stand Bed Transfer Ability Moderate x 2 (50% assist) Sit to Stand Chair Transfer Ability Moderate x 2 (50% assist) Rehab PT IP prob,goals,plan Problems Date of Evaluation: 11/11/24 PT IP Problems Bed Mobility,Transfers,Gait Rehab Potential Rehab Potential Good Equipment Needs Assistive Devices Rolling / Wheeled Walker Plan PT Intervention Plan Bed Mobility,Transfers,Gait, Therapeutic Exercise PT Plan Frequency Daily Duration LOS Discharge Goals Bed Transfer Ability Moderate x 1 (50% assist) Sit to Stand Chair Transfer Ability Moderate x 1 (50% assist) Ambulation Assistive Device Rolling Walker Ambulation Distance (feet) 10 Discharge Plan PT Discharge Plan Pt is currently most appropriate for rehab placement once medically stable for d/c. Skilled acute therapy is currently indicated to increase LE strength and endurance for ambulation and transfers so he can return to PLOF and increase independence with ADLs, transferring to from bed to his wheelchair, and decrease caregiver burden. Eval Complexity Eval Charge Codes 90321 - High Complexity PHYSICIAN CERTIFICATION: I certify the specified therapy services for Tyson Hawley are required, authorized, and reviewed every 30 days.
[2024-11-11] MEDS: POTASSIUM CHLORIDE 20MEQ TAB 20 MEQ PO ×2 (11:55→20:35)
--- NOTE | 2024-11-11 15:39 | PC.NURSE ---
Aox 4, on RA, FSBG ACHS, bed alarm active, 20g L AC SL, 20G L UA NS @ 75, consult to CM/ PT/ OT/ Nutrition, regular diet, purewick in place, from home.
[2024-11-11 16:00] VITALS: BP 167/66; PULSE 74; RESP 18; TEMP 36.6; O2SAT 97
[2024-11-11 16:05] LABS: POC Glucose,Bedside 285 (70-110)
--- NOTE | 2024-11-11 16:57 | HMH.PTWOUND ---
Rehab Inpt Wound Evaluation Rehab IP Wound Evaluation Start: 11/10/24 15:20 Freq: ONCE Status: Active Protocol: Document 11/11/24 09:00 [facility] (Rec: 11/11/24 16:56 [facility] [id number]) Rehab PT Wound Assessment Subjective Subjective Patient is a 84-year-old male with past medical history of hypertension, insulin- dependent diabetes, clubfoot who presents emergency department via EMS for evaluation of global weakness. Over the last week he has been largely unable to help himself transfer resulting in inability to complete his activities of daily living. cannot help the level of care he needs. He states that he uses a wheelchair in his home. Pt presents with wound to L plantar foot and sacral area upon admission. Wound Left Anterior Foot Wound Type unknown etiology Is This a Chronic Wound Yes Wound Length (cm) 0.7 Wound Width (cm) 0.4 Wound Depth (cm) 0.1 Wound Margins Description Well Defined Drainage Amount None Primary Dressing Composite Dressing Change Patient Tolerance Tolerated Well Sacrum Wound Type Pressure Ulcer Is This a Chronic Wound Yes Wound Staging Stage II Query Text:Stage I - Unbroken, red skin, no blanching. Stage II - Skin broken, superficial skin loss involving epidermis alone or also dermis. Partial loss of skin layers. Stage III - Pressure area involves epidermis, dermis and subcutaneous tissue, full thickness skin loss. Stage IV - Pressure area involves epidermis, subcutaneous tissue, bone and other supportive tissue. Full thickness skin loss with extensive destruction of underlying tissue and structures. Wound Length (cm) 3.0 Wound Width (cm) 3.0 Wound Depth (cm) 0.1 Wound Bed Appearance Rafael Hernandez Wound Margins Description Well Defined Surrounding Tissue Appearance Rafael Hernandez Wound Drainage Description Yellow Drainage Amount Moderate Primary Dressing Composite Plan/Recommendation Comment Currently pt requires no debridement of any wounds and [facility] [place] dressing all wounds appropriately. Continue pressure relief from the sacral area per protocols. Eval Complexity Eval Charge Codes 32555 - High Complexity PHYSICIAN CERTIFICATION: I certify the specified therapy services for Tyson Hawley are required, authorized, and reviewed every 30 days.
[2024-11-11 20:00] VITALS: BP 187/83; PULSE 77; RESP 16; TEMP 37.1; O2SAT 97
[2024-11-11] MEDS: PANTOPRAZOLE 40MG TABLET 40 MG PO (20:34)
[2024-11-11] MEDS: PRAVASTATIN 20MG TAB 20 MG PO (20:34)
[2024-11-11] MEDS: LISINOPRIL 20MG TABLET 40 MG PO (20:38)
[2024-11-11] MEDS: METOPROLOL TARTRATE 50MG TABLET 150 MG PO (21:08)
[2024-11-11 21:56] LABS: POC Glucose,Bedside 236 (70-110)
[2024-11-11] MEDS: 0.9 % SODIUM CHLORIDE 1000ML 1,000 ML 75 ML IV (23:34)
[2024-11-12] VITALS (15 sets, daily range): BP systolic 133–189; BP diastolic 51–90; PULSE 57–78; RESP 15–20; TEMP 36.4–37.6; O2SAT 93–99; BMI 25.7
--- NOTE | 2024-11-12 03:32 | PC.NURSE ---
Pt alert and oriented, resting in bed with eyes closed at this time. Telemetry order d/c and box was removed. Pt has 20 LAC with NS running at 75 mL/hr. Pt also has 20 JEWEL. Pt denies pain or any additional needs. Pt has purewick. Room air. On regular diet and received snacks before bed. Resting in bed with eyes closed at this time. Respirations even and unlabored. Bed is low, locked, and call light is in reach.
[2024-11-12 05:24] LABS: POC Glucose,Bedside 186 (70-110)
[2024-11-12 07:05] LABS: Basophils % 0.4 % (0.1-2.0); Eosinophils # 0.2 K/mm3 (0.0-0.4); Eosinophils % 1.9 % (0.1-12.0); Lymphocytes # 0.9 K/mm3 (0.7-4.5); Lymphocytes % 10.9 % (10-50); Mean Corpuscular HGB Conc 31.9 g/dL (31.8-35.4); Mean Corpuscular Hemoglobin 27.8 pg (27.0-31.2); Mean Corpuscular Volume 87.2 fl (80-94); Mean Platelet Volume 10.4 fl (7.4-10.4); Monocytes # 0.6 K/mm3 (0.1-1.0); Monocytes % 7.9 % (1.7-9.3); Neutrophils # 6.1 K/mm3 (1.8-7.8); Neutrophils % 78.3 % (37.0-80.0); Nucleated Red Blood Cells # 0 10^3/uL; Nucleated Red Blood Cells % 0 %; Platelet Count 272 K/mm3 (142-424); Red Blood Count 2.34 M/mm3 (4.60-6.20); Red Cell Distribution Width 14.2 % (11.5-17.5); Red Cell Distribution Width-SD 45.3 fL; White Blood Count 7.8 K/mm3 (4.8-10.8)
[2024-11-12 07:17] LABS: Hematocrit 20.4 % (42.0-52.0); Hemoglobin 6.5 g/dL (14.1-18.0)
[2024-11-12 07:24] LABS: Anion Gap 10.3 mEq/L (5-15); Blood Urea Nitrogen 34 mg/dl (9-20); Calcium 6.5 mg/dl (8.4-10.2); Carbon Dioxide 25 mmol/L (22.0-30.0); Chloride 102 mmol/L (98-107); Creatinine Clearance Estimated 40 mL/min (50-200); Estimated Glomerular Filt Rate 39 ml/min (>60); GFR (African American) 47 ML/MIN (>60); Glucose 162 mg/dl (74-100); Potassium 3.3 mmoL/L (3.5-5.1); Sodium 134 mmol/L (136-145)
[2024-11-12 08:25] LABS: Magnesium 1.6 mg/dl (1.6-2.3)
--- NOTE | 2024-11-12 08:57 | P.PN_ITS ---
Subjective *Date: 11/12/24 *Time: 08:57 Interval history: Patient with no new complaints today. Nurse called to report H/H drop. Medical Exam Vital signs and Labs for Last 24 Hours: Vital Signs Temp Pulse Resp BP Pulse Ox O2 Del Method 11/12/24 08:00 97.9 F 78 18 154/70 H 96 Room Air 11/12/24 06:47 Room Air 11/12/24 05:00 Room Air 11/12/24 04:00 99.7 F H 67 16 143/51 H 96 Room Air 11/12/24 03:00 Room Air 11/12/24 01:00 Room Air 11/11/24 23:00 Room Air 11/11/24 21:00 Room Air 11/11/24 20:00 98.8 F 77 16 187/83 H 97 Room Air 11/11/24 20:00 Room Air 11/11/24 18:10 Room Air 11/11/24 16:15 Room Air 11/11/24 16:00 97.9 F 74 18 167/66 H 97 Room Air 11/11/24 15:00 Room Air 11/11/24 13:00 Room Air 11/11/24 10:09 Room Air Intake and Output 11/11/24 11/12/24 11/12/24 23:59 07:59 15:59 Intake Total 280 / 1385 Output Total 700 / 1850 600 / 600 Balance -420 / -465 -600 / -600 Intake: Intake, Oral Amount 280 / 1200 Output: Output, Urine Amount 700 / 1850 600 / 600 Other: Number of Unmeasured Voids 0 Number of Bowel Movements 1 Weight 190 lb Patient Weight 11/12/24 23:59 Weight 190 lb Laboratory Results - last 24 hr 11/11/24 09:54: POC Glucose 262 H 11/11/24 15:59: POC Glucose 285 H 11/11/24 21:47: POC Glucose 236 H 11/12/24 05:16: POC Glucose 186 H 11/12/24 06:37: WBC 7.8, RBC 2.34 L, Hgb 6.5 L*, Hct 20.4 L*, MCV 87.2, MCH 27.8, MCHC 31.9, RDW 14.2, Plt Count 272, MPV 10.4, Neut % (Auto) 78.3, Lymph % (Auto) 10.9, [place] % (Auto) 7.9, Eos % (Auto) 1.9, Baso % (Auto) 0.4, Neut # (Auto) 6.1, Lymph # (Auto) 0.9, [place] # (Auto) 0.6, Eos # (Auto) 0.2, Baso # (Auto) 0.0, Sodium 134 L, Potassium 3.3 L, Chloride 102, Carbon Dioxide 25, Anion Gap 10.3, BUN 34 H, Creatinine 1.70 H, Estimated Creat Clear 40, Estimated GFR 39 L, Est GFR ( Amer) 47 L, Glucose 162 H, Calcium 6.5 L, Magnesium 1.6 D I & O for Labs for Last 24 Hours: Intake & Output 11/09/24 11/10/24 11/11/24 11/12/24 23:59 23:59 23:59 23:59 Intake Total 360 / 545 1385 / 1385 Output Total 0 / 0 1500 / 1850 600 / 600 Balance 360 / 545 -115 / -465 -600 / -600 Weight 154 lb 14.4 oz 185 lb 6.399 oz 190 lb Constitutional: Present no acute distress Respiratory: Present normal respiratory effort Cardiac: Present Reg Rate and Rhythm GI: Present normal bowel sounds; Absent tenderness Extremities: Present edema (both legs) Skin: Present wounds (on legs are healing) Neuro: Present Weakness (generalized) Assessment and Plan *Assessment and plan (1) Hypomagnesemia: Status: Acute Category: Medical Code(s): E83.42 - Hypomagnesemia (2) Acute hypokalemia: Status: Acute Category: Medical Code(s): E87.6 - Hypokalemia (3) CKD (chronic kidney disease): Status: Acute Category: Medical Code(s): N18.9 - Chronic kidney disease, unspecified (4) Declining functional status: Status: Acute Category: Medical Code(s): R53.81 - Other malaise (5) Elevated troponin I level: Status: Acute Category: Medical Code(s): R79.89 - Other specified abnormal findings of blood chemistry (6) Hypertension: Status: Acute Category: Medical Code(s): I10 - Essential (primary) hypertension (7) Type 2 diabetes mellitus with diabetic polyneuropathy, without long-term current use of insulin: Status: Acute Category: Medical Code(s): E11.42 - Type 2 diabetes mellitus with diabetic polyneuropathy (8) 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
[2024-11-12] MEDS: LISINOPRIL 20MG TABLET 40 MG PO (10:06)
[2024-11-12] MEDS: METOPROLOL TARTRATE 50MG TABLET 150 MG PO ×2 (10:06→20:00)
[2024-11-12] MEDS: PANTOPRAZOLE 40MG TABLET 40 MG PO ×2 (10:06→19:59)
[2024-11-12] MEDS: POTASSIUM CHLORIDE 20MEQ TAB 20 MEQ PO ×3 (10:06→19:59)
--- NOTE | 2024-11-12 10:09 | PC.NURSE ---
intake from multiple shifts
[2024-11-12 11:39] LABS: POC Glucose,Bedside 202 (70-110)
[2024-11-12 14:41] LABS: Occult Blood,Stool Negative (Negative)
[2024-11-12] MEDS: 0.9 % SODIUM CHLORIDE 1000ML 1,000 ML 75 ML IV (16:37)
--- NOTE | 2024-11-12 17:25 | PC.NURSE ---
Patient has done well this shift. No c/o pain, SOB this shift. He received on unit of PRBC's this shift and tolerated it well. Remains on room air. He has bee hypertensive this afternoon, asymptomatic. FSBS have been in the low to mid 200's today. No coverage ordered. Bed alarm in place for patient safety.
[2024-11-12] MEDS: TERAZOSIN 5MG CAPSULE 5 MG PO (19:59)
[2024-11-12] MEDS: PRAVASTATIN 20MG TAB 20 MG PO (19:59)
[2024-11-12 20:13] LABS: POC Glucose,Bedside 231 (70-110)
[2024-11-13 04:00] VITALS: BP 161/70; PULSE 60; RESP 19; TEMP 37.1; O2SAT 96; BMI 26.6
--- NOTE | 2024-11-13 04:13 | PC.NURSE ---
Pt has had no significant changes since initial assessment. Pt is currently resting in bed with eyes closed. Respirations even and unlabored. Bed is low, locked, and call light is in reach.
[2024-11-13 05:07] LABS: POC Glucose,Bedside 197 (70-110)
[2024-11-13] MEDS: 0.9 % SODIUM CHLORIDE 1000ML 1,000 ML 75 ML IV ×2 (05:17→18:09)
[2024-11-13 08:00] VITALS: BP 174/77; PULSE 65; RESP 17; TEMP 36.8; O2SAT 97
[2024-11-13] MEDS: POTASSIUM CHLORIDE 20MEQ TAB 20 MEQ PO ×3 (08:07→20:05)
[2024-11-13] MEDS: PANTOPRAZOLE 40MG TABLET 40 MG PO ×2 (08:08→20:06)
[2024-11-13] MEDS: LISINOPRIL 20MG TABLET 40 MG PO (08:08)
[2024-11-13] MEDS: METOPROLOL TARTRATE 50MG TABLET 150 MG PO ×2 (08:08→20:06)
[2024-11-13 08:32] LABS: Hematocrit 23.6 % (42.0-52.0); Hemoglobin 7.9 g/dL (14.1-18.0)
--- NOTE | 2024-11-13 09:13 | EXP.ACUTE.PN ---
Subjective *Date: 11/13/24 *Time: 09:13 Interval history: Patient states he feels a little better today, still weak. Received blood yesterday. Medical Exam Vital signs and Labs for Last 24 Hours: Vital Signs Temp Pulse Pulse Resp BP BP Pulse Ox 11/13/24 08:00 98.3 F 65 17 174/77 H 97 11/13/24 06:35 11/13/24 05:00 11/13/24 04:00 98.7 F 60 19 161/70 H 96 11/13/24 03:00 11/13/24 01:00 11/12/24 23:00 11/12/24 21:00 11/12/24 20:00 98.1 F 65 19 184/86 H 96 11/12/24 19:47 11/12/24 18:39 11/12/24 17:00 11/12/24 16:00 97.5 F L 67 16 189/90 H 97 11/12/24 15:00 11/12/24 14:56 98.7 F 65 20 156/75 H 98 11/12/24 13:56 98.3 F 68 18 165/83 H 99 11/12/24 13:40 98.3 F 68 18 176/87 H 99 11/12/24 13:00 11/12/24 12:40 98.5 F 59 L 15 147/66 H 99 11/12/24 12:25 98.5 F 60 16 151/63 H 98 11/12/24 12:10 98.8 F 59 L 16 134/61 99 11/12/24 11:55 99.5 F 59 L 18 139/60 98 11/12/24 11:50 99.5 F 59 L 18 147/64 H 97 11/12/24 11:45 99.0 F 60 20 140/66 98 11/12/24 11:40 99.0 F 57 L 18 140/66 93 L 11/12/24 11:25 99.2 F 59 L 18 133/64 97 11/12/24 11:00 O2 Del Method 11/13/24 08:00 Room Air 11/13/24 06:35 Room Air 11/13/24 05:00 Room Air 11/13/24 04:00 Room Air 11/13/24 03:00 Room Air 11/13/24 01:00 Room Air 11/12/24 23:00 Room Air 11/12/24 21:00 Room Air 11/12/24 20:00 Room Air 11/12/24 19:47 Room Air 11/12/24 18:39 Room Air 11/12/24 17:00 Room Air 11/12/24 16:00 Room Air 11/12/24 15:00 Room Air 11/12/24 14:56 11/12/24 13:56 11/12/24 13:40 11/12/24 13:00 Room Air 11/12/24 12:40 11/12/24 12:25 11/12/24 12:10 11/12/24 11:55 11/12/24 11:50 11/12/24 11:45 11/12/24 11:40 11/12/24 11:25 11/12/24 11:00 Room Air Intake and Output 11/12/24 11/13/24 11/13/24 23:59 07:59 15:59 Intake Total 423 / 4538 907 / 907 Output Total 300 / 300 Balance 423 / 3538 907 / 607 -300 / 607 Intake: Intake, Oral Amount 120 / 580 Intake, Total IV Amount 303 / 3708 907 / 907 0.9 % Sodium Chloride 1000ML 1, 303 / 3658 907 / 907 000 ml @ 75 mls/hr IV .[id number] [facility] Rx#:[id number] Output: Output, Urine Amount 300 / 300 Other: Number of Bowel Movements 1 1 Weight 197 lb 1.6 oz Patient Weight 11/13/24 23:59 Weight 197 lb 1.6 oz Laboratory Results - last 24 hr 11/12/24 09:20: Blood Type A Negative, Antibody Screen Negative, Crossmatch (AHG) See Detail 11/12/24 09:21: Blood Type Confirm A Negative 11/12/24 11:21: POC Glucose 202 H 11/12/24 14:10: Stool Occult Blood Negative 11/12/24 19:54: POC Glucose 231 H 11/13/24 04:56: POC Glucose 197 H 11/13/24 07:42: Hgb 7.9 L, Hct 23.6 L I & O for Labs for Last 24 Hours: Intake & Output 11/10/24 11/11/24 11/12/2425 23:59 23:59 23:59 23:59 Intake Total 360 / 545 1385 / 1385 3631 / 4538 907 / 907 Output Total 0 / 0 1500 / 1850 1000 / 1000 300 / 300 Balance 360 / 545 -115 / -465 2631 / 3538 607 / 607 Weight 154 lb 14.4 oz 185 lb 6.399 oz 190 lb 197 lb 1.6 oz Constitutional: Present no acute distress Respiratory: Present normal respiratory effort Cardiac: Present Reg Rate and Rhythm GI: Present normal bowel sounds; Absent tenderness Extremities: Present edema (both legs) Skin: Present wounds (on legs are healing) Neuro: Present Weakness (generalized) Assessment and Plan *Assessment and plan (1) Hypomagnesemia: Status: Acute Category: Medical Code(s): E83.42 - Hypomagnesemia (2) Acute hypokalemia: Status: Acute Category: Medical Code(s): E87.6 - Hypokalemia (3) CKD (chronic kidney disease): Status: Acute Category: Medical Code(s): N18.9 - Chronic kidney disease, unspecified (4) Declining functional status: Status: Acute Category: Medical Code(s): R53.81 - Other malaise (5) Elevated troponin I level: Status: Acute Category: Medical Code(s): R79.89 - Other specified abnormal findings of blood chemistry (6) Hypertension: Status: Acute Category: Medical Code(s): I10 - Essential (primary) hypertension (7) Type 2 diabetes mellitus with diabetic polyneuropathy, without long-term current use of insulin: Status: Acute Category: Medical Code(s): E11.42 - Type 2 diabetes mellitus with diabetic polyneuropathy (8) 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
[2024-11-13 11:32] LABS: POC Glucose,Bedside 220 (70-110)
[2024-11-13 13:16] LABS: Occult Blood,Stool Negative (Negative)
[2024-11-13 16:00] VITALS: BP 140/92; RESP 18; TEMP 36.9; O2SAT 97
[2024-11-13 16:32] LABS: POC Glucose,Bedside 293 (70-110)
--- NOTE | 2024-11-13 17:15 | PC.NURSE ---
Pt has done well this shift. Remains on room air and is tolerating well. sacral dressing changed this shift. VSS. He was able to call and talk to his this shift. Awaiting placement most likely tomorrow.
[2024-11-13 20:00] VITALS: BP 139/68; PULSE 75; RESP 16; TEMP 36.6; O2SAT 96
[2024-11-13] MEDS: PRAVASTATIN 20MG TAB 20 MG PO (20:05)
[2024-11-13] MEDS: TERAZOSIN 5MG CAPSULE 5 MG PO (20:06)
[2024-11-13 20:28] LABS: POC Glucose,Bedside 216 (70-110)
[2024-11-13] MEDS: humaLOG 100 UNITS/ML 10ML VIAL (SSI) SUBCUT (21:22)
[2024-11-14 04:00] VITALS: BP 161/77; PULSE 118; RESP 19; TEMP 36.7; O2SAT 96; BMI 26.5
[2024-11-14 06:39] LABS: Basophils # 0.1 K/mm3 (0-0.2); Basophils % 0.7 % (0.1-2.0); Eosinophils # 0.3 K/mm3 (0.0-0.4); Eosinophils % 3.8 % (0.1-12.0); Hematocrit 23.2 % (42.0-52.0); Hemoglobin 7.5 g/dL (14.1-18.0); Lymphocytes # 0.9 K/mm3 (0.7-4.5); Lymphocytes % 12.5 % (10-50); Mean Corpuscular HGB Conc 32.3 g/dL (31.8-35.4); Mean Corpuscular Hemoglobin 28.4 pg (27.0-31.2); Mean Corpuscular Volume 87.9 fl (80-94); Mean Platelet Volume 10.7 fl (7.4-10.4); Monocytes # 0.5 K/mm3 (0.1-1.0); Monocytes % 7.3 % (1.7-9.3); Neutrophils # 5.1 K/mm3 (1.8-7.8); Neutrophils % 75.3 % (37.0-80.0); Nucleated Red Blood Cells # 0 10^3/uL; Nucleated Red Blood Cells % 0 %; Platelet Count 323 K/mm3 (142-424); Red Blood Count 2.64 M/mm3 (4.60-6.20); Red Cell Distribution Width 14.4 % (11.5-17.5); Red Cell Distribution Width-SD 46.8 fL; Reticulocyte % (Auto) 1.3 % (0.9-3.2); White Blood Count 6.8 K/mm3 (4.8-10.8)
[2024-11-14 06:51] LABS: Anion Gap 14.4 mEq/L (5-15); Blood Urea Nitrogen 35 mg/dl (9-20); Calcium 7.1 mg/dl (8.4-10.2); Carbon Dioxide 21 mmol/L (22.0-30.0); Chloride 103 mmol/L (98-107); Creatinine Clearance Estimated 44 mL/min (50-200); Estimated Glomerular Filt Rate 41 ml/min (>60); GFR (African American) 50 ML/MIN (>60); Glucose 121 mg/dl (74-100); Potassium 4.4 mmoL/L (3.5-5.1); Sodium 134 mmol/L (136-145)
[2024-11-14 06:56] LABS: POC Glucose,Bedside 132 (70-110)
[2024-11-14 07:07] LABS: Iron 22 ug/dL (49-181)
[2024-11-14 07:17] LABS: Total Iron Binding Capacity 210 ug/dL (261-462)
[2024-11-14 07:40] LABS: Vitamin B12 251 pg/mL (239-931)
[2024-11-14 07:47] VITALS: BP 178/69; PULSE 65; RESP 16; TEMP 36.6; O2SAT 96
[2024-11-14] MEDS: 0.9 % SODIUM CHLORIDE 1000ML 1,000 ML 75 ML IV (07:56)
[2024-11-14] MEDS: PANTOPRAZOLE 40MG TABLET 40 MG PO (07:57)
[2024-11-14] MEDS: POTASSIUM CHLORIDE 20MEQ TAB 20 MEQ PO ×2 (07:57→12:18)
[2024-11-14] MEDS: METOPROLOL TARTRATE 50MG TABLET 150 MG PO (07:57)
[2024-11-14] MEDS: LISINOPRIL 20MG TABLET 40 MG PO (07:57)
[2024-11-14] MEDS: METFORMIN 500MG TABLET 1000 MG PO (07:57)
--- NOTE | 2024-11-14 08:48 | EXP.PN ---
Subjective *Date: 11/14/24 *Time: 09:10 Interval history: Patient states he is doing about the same. He is eating well. He ate everything on his tray today. He states his bottom hurts. He denies chest pain and shortness of breath. He was out of bed yesterday with physical therapy. He sat in a chair and he did not like this. He did sleep last night. Exam Data for Last 24 hours Vital signs and Labs for Last 24 Hours: Temp Pulse Resp BP Pulse Ox O2 Del Method 97.8 F 65 16 178/69 H 96 Room Air 11/14/24 07:47 11/14/24 07:47 11/14/24 07:47 11/14/24 07:47 11/14/24 07:47 11/14/24 08:24 Laboratory Results - last 24 hr 11/13/24 11:25: POC Glucose 220 H 11/13/24 16:24: POC Glucose 293 H 11/13/24 20:21: POC Glucose 216 H 11/13/24 : Stool Occult Blood Negative 11/14/24 05:47: WBC 6.8, RBC 2.64 L, Hgb 7.5 L, Hct 23.2 L, MCV 87.9, MCH 28.4, MCHC 32.3, RDW 14.4, Plt Count 323, MPV 10.7 H, Neut % (Auto) 75.3, Lymph % (Auto) 12.5, [place] % (Auto) 7.3, Eos % (Auto) 3.8, Baso % (Auto) 0.7, Neut # (Auto) 5.1, Lymph # (Auto) 0.9, [place] # (Auto) 0.5, Eos # (Auto) 0.3, Baso # (Auto) 0.1, Retic Count (auto) 1.3, Sodium 134 L, Potassium 4.4 D, Chloride 103, Carbon Dioxide 21 L, Anion Gap 14.4, BUN 35 H, Creatinine 1.60 H, Estimated Creat Clear 44, Estimated GFR 41 L, Est GFR ( Amer) 50 L, Glucose 121 H, Calcium 7.1 L, Iron 22 L, TIBC 210 L, Iron Saturation 10.34847 L, Ferritin 78.0, Vitamin B12 251 11/14/24 06:50: POC Glucose 132 H I & O for Last 24 hours: Intake & Output 11/11/24 11/12/24 11/13/24 11/14/24 11:59 11:59 11:59 11:59 Intake Total 785 / 785 3718 / 3718 1780 / 1780 2495 / 2495 Output Total 800 / 800 1300 / 1300 700 / 700 500 / 500 Balance -15 / 15 2418 / 2418 1080 / 1080 1994 Weight 185 lb 6.399 oz 190 lb 197 lb 1.6 oz 195 lb 12.328 oz Constitutional Constitutional: no acute distress Comments: Appears comfortable in the bed. *Routine Respiratory Exam Respiratory: Present decreased breath sounds (Posteriorly bilaterally) *Routine Cardiovascular Exam Cardiovascular: Present RRR *Routine Abdominal Exam Abdominal: Present soft, normoactive bowel sounds and obese; Absent tenderness *Routine Extremities Exam Extremities: Present edema (Bilateral leg edema) *Routine Skin Exam Skin: Present dry and pallor Comments: Sacral area with excoriation and erythema *Routine Neurological Exam Neurological: Present alert and oriented X3 Assessment and Plan *Assessment and plan (1) Hypomagnesemia: Status: Acute Category: Medical Code(s): E83.42 - Hypomagnesemia (2) Acute hypokalemia: Status: Acute Category: Medical Code(s): E87.6 - Hypokalemia (3) CKD (chronic kidney disease): Status: Acute Category: Medical Code(s): N18.9 - Chronic kidney disease, unspecified (4) Declining functional status: Status: Acute Category: Medical Code(s): R53.81 - Other malaise (5) Elevated troponin I level: Status: Acute Category: Medical Code(s): R79.89 - Other specified abnormal findings of blood chemistry (6) Hypertension: Status: Acute Category: Medical Code(s): I10 - Essential (primary) hypertension (7) Type 2 diabetes mellitus with diabetic polyneuropathy, without long-term current use of insulin: Status: Acute Category: Medical Code(s): E11.42 - Type 2 diabetes mellitus with diabetic polyneuropathy (8) 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 He is iron deficient with an iron level of 10.4. BUN and creatinine is 35 and 1.6. He has been accepted at [place] and will be transferred there today. See discharge summary. Dr. Juan entry - Saw patient, agree with above note. Iron def. anemia does not seem to be due to a GI bleed, will give a dose IV iron today prior to discharge.
[2024-11-14] MEDS: IRON SUCROSE COMPLEX 200 MG in 0.9 % SODIUM CHLORIDE 100 ML 220 MG IV (09:28)
[2024-11-14 10:31] LABS: POC Glucose,Bedside 166 (70-110)
--- NOTE | 2024-11-14 11:21 | EXP.DC.SUM ---
General Admission date:: 11/10/24 Discharge date: 11/14/24 HPI HPI HPI: Patient is a 84-year-old male with past medical history of hypertension, insulin-dependent diabetes, clubfoot who presents emergency department via EMS for evaluation of global weakness. History is obtained by EMS, normally he is full assist with his and rolls around in a computer chair however he is able to provide some effort to help. Over the last week he has been largely unable to help himself transfer resulting in inability to complete his activities of daily living. cannot help the level of care he needs. He has no acute complaints other than global weakness (above as per ER physician) Hospital Course Hospital Course Hospital Course: Patient was started on magnesium and potassium on admission. He was feeling better the following day. Care management was consulted for discharge planning and probable placement. H&H was monitored. And did decrease down to 6.5. He received 1 unit of packed red blood cells with an increase to 7.5. Stool for occult blood was negative x 2. Blood sugars were monitored and he was placed on sliding scale insulin. Patient complaining of having a sore area on his lower back. He was afraid of a bedsore. This was examined and an excoriated area was noted with erythema. He was noted to eat well. He was incontinent of urine and stool. Repositioning in the bed was required. Physical therapy did see the patient for wound care as well as therapy. He required moderate assistance with transfers, sit to stand; they felt he was most appropriate for placement for ongoing rehab On 11/14/2024 a bed at [facility] was available. He will be transferred there for continued physical therapy as well as wound/skin care. He was given a dose of IV Venofer for his iron deficiency anemia prior to discharge. Exam Data for Last 24 hours Vital signs and Labs for Last 24 Hours: Temp Pulse Resp BP Pulse Ox O2 Del Method 97.8 F 65 16 178/69 H 96 Room Air 11/14/24 07:47 11/14/24 07:47 11/14/24 07:47 11/14/24 07:47 11/14/24 07:47 11/14/24 10:28 Laboratory Results - last 24 hr 11/13/24 11:25: POC Glucose 220 H 11/13/24 16:24: POC Glucose 293 H 11/13/24 20:21: POC Glucose 216 H 11/13/24 : Stool Occult Blood Negative 11/14/24 05:47: WBC 6.8, RBC 2.64 L, Hgb 7.5 L, Hct 23.2 L, MCV 87.9, MCH 28.4, MCHC 32.3, RDW 14.4, Plt Count 323, MPV 10.7 H, Neut % (Auto) 75.3, Lymph % (Auto) 12.5, [place] % (Auto) 7.3, Eos % (Auto) 3.8, Baso % (Auto) 0.7, Neut # (Auto) 5.1, Lymph # (Auto) 0.9, [place] # (Auto) 0.5, Eos # (Auto) 0.3, Baso # (Auto) 0.1, Retic Count (auto) 1.3, Sodium 134 L, Potassium 4.4 D, Chloride 103, Carbon Dioxide 21 L, Anion Gap 14.4, BUN 35 H, Creatinine 1.60 H, Estimated Creat Clear 44, Estimated GFR 41 L, Est GFR ( Amer) 50 L, Glucose 121 H, Calcium 7.1 L, Iron 22 L, TIBC 210 L, Iron Saturation 10.96487 L, Ferritin 78.0, Vitamin B12 251 11/14/24 06:50: POC Glucose 132 H 11/14/24 10:02: POC Glucose 166 H I & O for Last 24 hours: Intake & Output 11/11/24 11/12/24 11/13/24 11/14/24 11:59 11:59 11:59 11:59 Intake Total 785 / 785 3718 / 3718 1780 / 1780 2495 / 2495 Output Total 800 / 800 1300 / 1300 700 / 700 500 / 500 Balance -15 / -15 2418 / 2418 1080 / 1079 Weight 185 lb 6.399 oz 190 lb 197 lb 1.6 oz 195 lb 12.328 oz Narrative: Physical exam on date of discharge 11/14/2024 at [facility]: Constitutional Constitutional: no acute distress Comments: Appears comfortable in the bed. *Routine Respiratory Exam Respiratory: Present decreased breath sounds (Posteriorly bilaterally) *Routine Cardiovascular Exam Cardiovascular: Present RRR *Routine Abdominal Exam Abdominal: Present soft, normoactive bowel sounds and obese; Absent tenderness *Routine Extremities Exam Extremities: Present edema (Bilateral leg edema) *Routine Skin Exam Skin: Present dry and pallor Comments: Sacral area with excoriation and erythema *Routine Neurological Exam Neurological: Present alert and oriented X3 Results Data Completed and Pending Labs on day of discharge: Labs from last 24 hours 11/14/24 11/14/24 11/14/24 10:02 06:50 05:47 WBC 6.8 RBC 2.64 L Hgb 7.5 L Hct 23.2 L MCV 87.9 MCH 28.4 MCHC 32.3 RDW 14.4 Plt Count 323 MPV 10.7 H Neut % (Auto) 75.3 Lymph % (Auto) 12.5 [place] % (Auto) 7.3 Eos % (Auto) 3.8 Baso % (Auto) 0.7 Neut # (Auto) 5.1 Lymph # (Auto) 0.9 [place] # (Auto) 0.5 Eos # (Auto) 0.3 Baso # (Auto) 0.1 Retic Count (auto) 1.3 Sodium 134 L Potassium 4.4 D Chloride 103 Carbon Dioxide 21 L Anion Gap 14.4 BUN 35 H Creatinine 1.60 H Estimated Creat Clear 44 Estimated GFR 41 L Est GFR ( Amer) 50 L Glucose 121 H POC Glucose 166 H 132 H Calcium 7.1 L Iron 22 L TIBC 210 L Iron Saturation 10.76541 L Ferritin 78.0 Vitamin B12 251 Stool Occult Blood 11/13/24 11/13/24 11/13/24 Unknown 20:21 16:24 WBC RBC Hgb Hct MCV MCH MCHC RDW Plt Count MPV Neut % (Auto) Lymph % (Auto) [place] % (Auto) Eos % (Auto) Baso % (Auto) Neut # (Auto) Lymph # (Auto) [place] # (Auto) Eos # (Auto) Baso # (Auto) Retic Count (auto) Sodium Potassium Chloride Carbon Dioxide Anion Gap BUN Creatinine Estimated Creat Clear Estimated GFR Est GFR ( Amer) Glucose POC Glucose 216 H 293 H Calcium Iron TIBC Iron Saturation Ferritin Vitamin B12 Stool Occult Blood Negative 11/13/24 11:25 WBC RBC Hgb Hct MCV MCH MCHC RDW Plt Count MPV Neut % (Auto) Lymph % (Auto) [place] % (Auto) Eos % (Auto) Baso % (Auto) Neut # (Auto) Lymph # (Auto) [place] # (Auto) Eos # (Auto) Baso # (Auto) Retic Count (auto) Sodium Potassium Chloride Carbon Dioxide Anion Gap BUN Creatinine Estimated Creat Clear Estimated GFR Est GFR ( Amer) Glucose POC Glucose 220 H Calcium Iron TIBC Iron Saturation Ferritin Vitamin B12 Stool Occult Blood DS: Diagnosis Discharge Diagnosis (1) Hypomagnesemia: Status: Acute Code(s): E83.42 - Hypomagnesemia (2) Acute hypokalemia: Status: Acute Code(s): E87.6 - Hypokalemia (3) CKD (chronic kidney disease): Status: Acute Code(s): N18.9 - Chronic kidney disease, unspecified (4) Declining functional status: Status: Acute Code(s): R53.81 - Other malaise (5) Elevated troponin I level: Status: Acute Code(s): R79.89 - Other specified abnormal findings of blood chemistry (6) Hypertension: Status: Acute Code(s): I10 - Essential (primary) hypertension (7) Type 2 diabetes mellitus with diabetic polyneuropathy, without long-term current use of insulin: Status: Acute Code(s): E11.42 - Type 2 diabetes mellitus with diabetic polyneuropathy (8) 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: Status: Acute Code(s): Z89.421 - Acquired absence of other right toe(s) (9) Venous stasis dermatitis: Status: Acute Code(s): I87.2 - Venous insufficiency (chronic) (peripheral) (10) Peripheral edema: Status: Acute Code(s): R60.0 - Localized edema (11) Anemia: Status: Acute Code(s): D64.9 - Anemia, unspecified Meds Home Medications and Allergies Home Medications ?Medication ?Instructions ?Recorded ?Confirmed ?Type metformin 1,000 mg tablet 1,000 mg PO BIDWMEAL 09/21/17 11/11/24 History aspirin 81 mg chewable tablet 81 mg PO DAILY 11/11/24 11/11/24 History benazepril 40 mg tablet 40 mg PO DAILY 11/11/24 11/11/24 History ferrous sulfate 325 mg (65 mg 325 mg PO BID 11/11/24 11/11/24 History iron) tablet (iron) lovastatin 20 mg tablet 20 mg PO HS 11/11/24 11/11/24 History metoprolol tartrate 100 mg tablet 150 mg PO BID 11/11/24 11/11/24 History omeprazole 20 mg capsule,delayed 20 mg PO DAILY 11/11/24 11/11/24 History release terazosin 5 mg capsule 5 mg PO HS 11/11/24 11/11/24 History New Prescriptions to Start Prescriptions: Allergies Allergy/AdvReac Type Severity Reaction Status Date / Time No Known Allergies Allergy Unverified 02/24/23 14:51 Discharge Plan Disposition Patient Disposition: Xfer SNF Condition: Fair Discharge Order Discharge Orders: Discharge Order (Routine); Ordered 11/14/24 Ordered By: Hi Juan Follow up Plan Follow up with: Hi Juan MD [Primary Care Provider] - Enter time for follow up (At [facility]) Prescriptions/Medication Reconciliation: Continued metformin 1,000 mg tablet 1,000 mg PO BIDWMEAL omeprazole 20 mg capsule,delayed release(DR/EC) 20 mg PO DAILY aspirin 81 mg Tablet,Chewable 81 mg PO DAILY lovastatin 20 mg tablet 20 mg PO HS terazosin 5 mg capsule 5 mg PO HS metoprolol tartrate 100 mg tablet 150 mg PO BID ferrous sulfate [iron] 325 mg (65 mg iron) tablet 325 mg PO BID benazepril 40 mg tablet 40 mg PO DAILY Discontinued furosemide 40 mg tablet 40 mg PO DAILY Patient Comments: TAKE 1 TABLET BY MOUTH ONCE DAILY FOR 30 DAYS potassium chloride 10 mEq tablet,ER particles/crystals 10 meq PO DAILY Problem Reconciliation Problems Reviewed?: Yes Patient Discharge Instructions ACTIVITY: Continue current activity DIET: continue same diet Additional Instructions: Please check BMP and CBC in 1 week Patient Instructions: DI for Hypokalemia, DI for Hypomagnesemia Print Language: German Providers Primary Care Provider: Hi Juan Admit Provider: Hi Juan Attending Provider: Hi Juan
--- NOTE | 2024-11-14 14:20 | PC.NURSE ---
Report called to Kay at [facility].
[2024-11-14 14:22] VITALS: BP 157/60; PULSE 58; RESP 16; TEMP 36.7; O2SAT 98
[2024-11-15 14:25] LABS: Erythropoietin 16.4 mIU/mL (2.6-18.5)
== END 2024-11-14 14:39 | DRG 948 ==
LOC: ER 11:29 → 2ND 12:59
PROVIDERS: Internal Medicine Adolescent Medicine; Admitting Provider Family Medicine; Emergency Provider Emergency Medicine; PCP Family Medicine; Visit Provider Family Medicine
DX: R53.81 Other malaise (principal); R53.1 Weakness; E83.42 Hypomagnesemia; K21.9 Gastro-esophageal reflux disease without esophagitis; L89.152 Pressure ulcer of sacral region, stage 2; D63.1 Anemia in chronic kidney disease; E11.42 Type 2 diabetes mellitus with diabetic polyneuropathy; E11.22 Type 2 diabetes mellitus with diabetic chronic kidney disease; E87.6 Hypokalemia; I12.9 Hypertensive chronic kidney disease with stage 1 through stage 4 chronic kidney disease, or unspecified chronic kidney disease; R15.9 Full incontinence of feces; R32 Unspecified urinary incontinence; N18.9 Chronic kidney disease, unspecified; Q66.89 Other specified congenital deformities of feet; R79.89 Other specified abnormal findings of blood chemistry; Z74.1 Need for assistance with personal care; Z82.3 Family history of stroke; Z82.49 Family history of ischemic heart disease and other diseases of the circulatory system; Z83.3 Family history of diabetes mellitus; Z79.899 Other long term (current) drug therapy; Z79.82 Long term (current) use of aspirin; Z79.84 Long term (current) use of oral hypoglycemic drugs; Z89.431 Acquired absence of right foot; Z99.3 Dependence on wheelchair
CPT/HCPCS: 36415; 80048; 80053; 81001; 82272; 82607; 82668; 82728; 82962; 83540; 83550; 83735; 84439; 84443; 84484; 85014; 85018; 85025; 85044; 86850; 87636; 93005; 97110; 97163; 97166; 97530; 99291; G0328; J1756; J3475; J7030; P9016

== ENCOUNTER 2024-11-28 21:35 | Emergency (ER) | payer MEDICARE, SELFPAY ==
--- NOTE | 2024-11-28 21:11 | PC.NURSE ---
2108 This RN receives report from Paige MENDEZ at [facility]. Pt is coming by [facility] for evaluation of a possible stroke. 30 minutes prior to receiving report patient was attempting to talk on the phone with his , and his speech was noted to be garbled . BP 169-63 HR 85, o2 98% on RA, 20RR, 97.8 temp, no bgl was assessed. HX of HTN, CKD, T2DM
--- NOTE | 2024-11-28 21:20 | PC.NURSE ---
2119 Stroke alert called. Patient with right sided weakness, and severe aphasia. Patient taken straight to [facility] 9 2124 18 L wrist established in CT. 18 Left AC present from EMS. 2148 Spoke with Lillian about patient PMH and onset of symptoms to which she states that she was talking to patient on the phone approx 1500 to which patient speech was more garbled than usual and patient was unable to hold a conversation. 2154 spoke with ADNREA Gibson on patient LKW. Conflicting stories between RN and family on patient LKW unable to directly establish time. 2206 Dr. Ross on phone with at this time to update plan of care, and to clarify treatment plan. Decision made to not TNK per Dr. Ross. 2233 TRN noticed abnormal EKG rhythm on monitor with severe artifact. TRN to patient bedside and noticed patient was seizing. MD to bedside. New orders placed. See note. Patient placed on NRB, and mouth suctioned. Keppra and Ativan administered.
--- NOTE | 2024-11-28 21:27 | CT_ITS ---
PROCEDURE INFORMATION: Exam: CT Head Without Contrast Exam date and time: 11/28/2024 9:34 PM Age: 84 years old Clinical indication: Stroke-like symptoms; Speech disturbance; Additional info: Possible stroke TECHNIQUE: Imaging protocol: Computed tomography of the head without contrast. Radiation optimization: All CT scans at this facility use at least one of these dose optimization techniques: automated exposure control; mA and/or kV adjustment per patient size (includes targeted exams where dose is matched to clinical indication); or iterative reconstruction. Other technique: STROKE PROTOCOL was implemented. COMPARISON: CT HEAD/BRAIN WO CON 11/28/2024 9:34 PM FINDINGS: Brain: There is moderate diffuse cerebral volume loss present. Multiple subcortical and deep hypoattenuating white matter foci are present, likely related to small vessel senescent changes and can also be seen with prior infectious / inflammatory insult, or prior traumatic events. No hyperattenuating foci are identified to suggest acute intracranial hemorrhage. Cerebral ventricles: No ventriculomegaly. Paranasal sinuses: Visualized sinuses are unremarkable. No fluid levels. Mastoid air cells: Visualized mastoid air cells are well aerated. Bones: Unremarkable. No acute fracture. Soft tissues: Unremarkable. IMPRESSION: 1. Multiple subcortical and deep hypoattenuating white matter foci are present, likely related to small vessel senescent changes and can also be seen with prior infectious / inflammatory insult, or prior traumatic events. 2. No hyperattenuating foci are identified to suggest acute intracranial hemorrhage. ASSESSMENT: ASPECTS ([place] Stroke Program Early CT Score) is 10.
--- NOTE | 2024-11-28 21:27 | XR_ITS ---
PROCEDURE INFORMATION: Exam: XR Chest Exam date and time: 11/28/2024 9:40 PM Age: 84 years old Clinical indication: Other: Possible stroke TECHNIQUE: Imaging protocol: Radiologic exam of the chest. Views: 1 view. COMPARISON: CR XR CHEST 2V 05/12/2022 3:14 PM FINDINGS: Lungs: Bibasilar opacities partially silhouette the diaphragm are favored to represent combination of atelectasis/pleural effusion/consolidation. Pleural spaces: See Lungs finding. Heart/Mediastinum: Unremarkable. No cardiomegaly. Bones/joints: Unremarkable. IMPRESSION: Bibasilar opacities partially silhouette the diaphragm are favored to represent combination of atelectasis/pleural effusion/consolidation.
--- NOTE | 2024-11-28 21:27 | CT_ITS ---
PROCEDURE INFORMATION: Exam: CTA Neck With Contrast Exam date and time: 11/28/2024 9:36 PM Age: 84 years old Clinical indication: Stroke-like symptoms; Speech disturbance; Additional info: Possible stroke TECHNIQUE: Imaging protocol: Computed tomographic angiography of the neck with contrast. Exam focused on the cervical segments of the vasculature. 3D rendering (Not supervised by radiologist): MIP and/or 3D reconstructed images were created by the technologist. Radiation optimization: All CT scans at this facility use at least one of these dose optimization techniques: automated exposure control; mA and/or kV adjustment per patient size (includes targeted exams where dose is matched to clinical indication); or iterative reconstruction. Contrast material: ISOVUE; Contrast volume: 80 ml; Contrast route: INTRAVENOUS (IV); COMPARISON: CT HEAD/BRAIN WO CON 11/28/2024 9:34 PM FINDINGS: Right common carotid artery: Mild mixed calcific and noncalcified atherosclerotic disease of the right carotid bulb resulting in mild stenosis. Right internal carotid artery: No stenosis of the extracranial segment. No dissection or occlusion. Right external carotid artery: No occlusion or stenosis of the origin. Left common carotid artery: Mild mixed calcific and noncalcified atherosclerotic disease of the left carotid bulb resulting in mild stenosis. Left internal carotid artery: No stenosis of the extracranial segment. No dissection or occlusion. Left external carotid artery: No occlusion or stenosis of the origin. Right vertebral artery: No stenosis. No dissection or occlusion. Left vertebral artery: No stenosis. No dissection or occlusion. Soft tissues: Normal. No significant soft tissue swelling. Bones/joints: Moderate loss of intervertebral disc space with degenerative changes involving C3 through C7. Lungs: Compressive atelectasis of the lungs. Pleural spaces: Moderate bilateral pleural effusions are present. IMPRESSION: 1. Moderate bilateral pleural effusions with compressive atelectasis. 2. No large vessel stenosis or occlusion. REFERENCES: NASCET CRITERIA. The degree of stenosis in the cervical segment of the internal carotid artery is based on NASCET criteria. Normal is no stenosis. Mild is less than 50% stenosis. Moderate is 50-69% stenosis. Severe is 70% to 99% stenosis. Total occlusion is no detectable patent lumen.
--- NOTE | 2024-11-28 21:27 | CT_ITS ---
PROCEDURE INFORMATION: Exam: CTA Head With Contrast, Arteriography Exam date and time: 11/28/2024 9:36 PM Age: 84 years old Clinical indication: Stroke-like symptoms; Speech disturbance; Additional info: Possible stroke TECHNIQUE: Imaging protocol: Computed tomographic angiography of the head with contrast. Exam focused on the arteries. 3D rendering (Not supervised by radiologist): MIP and/or 3D reconstructed images were created by the technologist. Radiation optimization: All CT scans at this facility use at least one of these dose optimization techniques: automated exposure control; mA and/or kV adjustment per patient size (includes targeted exams where dose is matched to clinical indication); or iterative reconstruction. Contrast material: ISOVUE; Contrast volume: 80 ml; Contrast route: INTRAVENOUS (IV); COMPARISON: CT HEAD/BRAIN WO CON 11/28/2024 9:34 PM FINDINGS: ANTERIOR CIRCULATION: Right internal carotid artery: Moderate calcific atherosclerotic disease of the right intracranial ICA resulting in mild stenosis of the cavernous segment. Right middle cerebral artery: No occlusion or significant stenosis. No aneurysm. Right anterior cerebral artery: No occlusion or significant stenosis. No aneurysm. Left internal carotid artery: Mild calcific atherosclerotic disease of the left intracranial ICA resulting in mild stenosis. Left middle cerebral artery: No occlusion or significant stenosis. No aneurysm. Left anterior cerebral artery: No occlusion or significant stenosis. No aneurysm. POSTERIOR CIRCULATION: Right vertebral artery: No occlusion or significant stenosis. No aneurysm. Left vertebral artery: No occlusion or significant stenosis. No aneurysm. Basilar artery: No occlusion or significant stenosis. No aneurysm. Right posterior cerebral artery: No occlusion or significant stenosis. No aneurysm. Left posterior cerebral artery: No occlusion or significant stenosis. No aneurysm. Brain: No definite mass, mass effect, or midline shift. Cerebral ventricles: No ventriculomegaly. Bones/joints: Unremarkable. No acute fracture. Soft tissues: Unremarkable. IMPRESSION: No large vessel stenosis or occlusion.
[2024-11-28] MEDS: 0.9 % SODIUM CHLORIDE 50 ML VIAL IV (21:38)
[2024-11-28] MEDS: SODIUM CHLORIDE 0.9% 10ML SYR (RAD ONLY) 10 ML IV (21:38)
[2024-11-28] MEDS: IOPAMIDOL-370 (76%);100ML BOTTLE 80 ML IV (21:38)
--- NOTE | 2024-11-28 21:38 | ED_ITS ---
Discharge Plan Disposition Patient Disposition: Xfer Short-Term Hosp Chief Complaint: Neuro Symptoms/Deficit Prescriptions Prescriptions: No Action metformin 1,000 mg tablet 1,000 mg PO BIDWMEAL omeprazole 20 mg capsule,delayed release(DR/EC) 20 mg PO DAILY aspirin 81 mg Tablet,Chewable 81 mg PO DAILY lovastatin 20 mg tablet 20 mg PO HS terazosin 5 mg capsule 5 mg PO HS metoprolol tartrate 100 mg tablet 150 mg PO BID ferrous sulfate [iron] 325 mg (65 mg iron) tablet 325 mg PO BID benazepril 40 mg tablet 40 mg PO DAILY Referrals Follow up/Referrals: Provider,Referral, MD [Primary Care Provider] - See instructions Clinical Impressions Clinical Impression: Aphasia, Stroke, Seizure Stand Alone Forms Stand Alone Forms: Transfer Record - ED Print Language Print Language: Martiniquais Discharge ED Provider: Guy Ross General Adult HPI General Chief complaint: Neuro Symptoms/Deficit Stated complaint: Possible Stroke Time Seen by Provider: 11/28/24 21:37 Mode of Arrival: EMS Source of Information: EMS Limitations: Altered Mental Status History of Present Illness HPI narrative: 84-year-old male with a history of hypertension, insulin-dependent diabetes, clubfoot who presents as a stroke alert. History was obtained with difficulty due to patient's altered mental status and conflicting stories with nursing staff and patient's . states that she talk to the patient at about 3:30 PM and that he seemed like he was slurring his speech. She did not believe that he was at his baseline mental status at that time. States that he also talk to his sister prior to that time and she said the same. correction states that he seemed to be himself rounds at 7 PM. His then called him later that evening and stated that he was continuing to slur his speech. They were then concern for stroke and called EMS for transport to the emergency department. Reports right sided facial droop and right upper extremity weakness as well as aphasia. Glucose normal. Otherwise hemodynamically stable. No blood thinner use. Related Data Home Medications ?Medication ?Instructions ?Recorded ?Confirmed metformin 1,000 mg tablet 1,000 mg PO BIDWMEAL 09/21/17 11/11/24 aspirin 81 mg chewable tablet 81 mg PO DAILY 11/11/24 11/11/24 benazepril 40 mg tablet 40 mg PO DAILY 11/11/24 11/11/24 ferrous sulfate 325 mg (65 mg 325 mg PO BID 11/11/24 11/11/24 iron) tablet (iron) lovastatin 20 mg tablet 20 mg PO HS 11/11/24 11/11/24 metoprolol tartrate 100 mg tablet 150 mg PO BID 11/11/24 11/11/24 omeprazole 20 mg capsule,delayed 20 mg PO DAILY 11/11/24 11/11/24 release terazosin 5 mg capsule 5 mg PO HS 11/11/24 11/11/24 Allergies Allergy/AdvReac Type Severity Reaction Status Date / Time No Known Allergies Allergy Unverified 02/24/23 14:51 [facility] Disclaimer: The information contained in this section may have been updated after the patient was seen, as this information can be updated by other users. 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, without long-term current use of insulin Onychomycosis Diabetes mellitus Surgical History (Updated 11/18/24 @ 00:00 by Benjamin Harden) 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 Family History (Updated 11/11/24 @ 09:07 by SRINIVASAN Vasquez) Other Coronary artery disease Diabetes Stroke Social History (Updated 11/10/24 @ 13:52 by Brianne Fiore RN) Smoking Status: Never smoker alcohol intake: never substance use type: denies use current occupational status: retired Travel in the last 8 weeks?: None household members: spouse housing: house Have you lived/traveled outside US in past 30 days?: No Contact w/someone who lives/traveled outside US past 30 days?: No Exposure to someone with infectious disease in past 14 days?: No Do you have a fever (greater than 100.4 F or 38 C)?: No Have you tested positive for COVID-19?: No Exposed to someone with COVID-19 in past 14 days?: No Do you have a sore throat?: No Do you have a cough?: No Do you have any weakness?: No Do you have any diarrhea?: No Are you experiencing any unusual bleeding?: No Do you have any muscle aches/pain?: No Do you have any abdominal pain?: No Are you experiencing loss of taste or smell?: No Other Medical History Have you received the Flu Vaccine for this season: No Have you received the Pneumonia Vaccine: No ROS Obtained: Yes unobtainable due to mental condition Physical Exam General General appearance: alert Comment: Ill-appearing Head Head exam: atraumatic Eye Eye exam: Present normal appearance, PERRL and EOMI Neck Neck exam: Present normal inspection and full ROM Chest Chest inspection: Present symmetric chest wall rise Respiratory Respiratory exam: Present normal lung sounds bilaterally; Absent respiratory distress Cardiovascular Cardiovascular exam: Present regular rate and normal rhythm Abdominal Exam Abdominal exam: Present soft; Absent distention or tenderness Extremities Exam Extremities exam: Present normal inspection Neurological Exam Neurological exam: Present alert and other (NIH 8. Severe aphasia and dysarthria. Right upper extremity and right lower extremity drift. 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 Screening: Per USPSTF and CDC recommendations, given the prevalence of disease in our region, it is our hospital?s policy to screen for HIV and viral Hepatitis for all patients aged 18 and over and those with ongoing risk factors. MR Comment: Hospital medicine discharge summary from 11/14/2024 notable for patient's past medical history as noted above. Juan M Inquiry Pt receiving controlled substance: No Vital Signs: 11/28/24 21:45 11/28/24 21:46 11/28/24 22:02 Temperature 98.2 F Temperature Source Oral Pulse Rate [Right] 82 Respiratory Rate 19 Blood Pressure 160/62 H 158/66 H Blood Pressure [Right Arm] 175/74 H Blood Pressure Mean [Right Arm] 107 Blood Pressure Source Manual Cuff/ Auscultation Manual Cuff/ Auscultation Blood Pressure Position Supine Supine Blood Pressure Position [Right Arm] Supine 02 Sat by Pulse Oximetry 98 Oxygen Delivery Method Room Air Lab Data Lab Results 11/28/24 21:20: WBC 7.0, RBC 2.93 L, Hgb 8.2 L, Hct 25.0 L, MCV 85.3, MCH 28.0, MCHC 32.8, RDW 14.0, Plt Count 315, MPV 10.2, Neut % (Auto) 79.2, Lymph % (Auto) 12.1, [place] % (Auto) 6.6, Eos % (Auto) 1.3, Baso % (Auto) 0.4, Neut # (Auto) 5.5, Lymph # (Auto) 0.8, [place] # (Auto) 0.5, Eos # (Auto) 0.1, Baso # (Auto) 0.0, PT 11.9, INR 1.07, APTT 28.0, Sodium 133 L, Potassium 3.3 L, Chloride 99, Carbon Dioxide 28, Anion Gap 9.3, BUN 42 H, Creatinine 1.70 H, Estimated GFR 39 L, Est GFR ( Amer) 47 L, Glucose 231 H, Calcium 7.9 L, Total Bilirubin 0.2, AST 20, ALT 17, Alkaline Phosphatase 154 H, Troponin I 0.10 H, Total Protein 6.1 L, Albumin 2.6 L, Globulin 3.5 H, Albumin/Globulin Ratio 0.7 L, Triglycerides 46, C holesterol 112 L, LDL Cholesterol Direct 40.69 L, VLDL Cholesterol 9, HDL Cholesterol 43, Cholesterol/HDL Ratio 2.6, Plasma/Serum Alcohol < 10 11/28/24 21:43: POC Glucose 261 H 11/28/24 21:20 11/28/24 21:20 Orders (Tests/Meds): ED MEDICATIONS Generic Name Dose Route Start Last Admin Trade Name Freq PRN Reason Stop Dose Admin Sodium Chloride 10 ml 11/28/24 21:26 Sodium Chloride 0.9% 10ml Flush Syringe IV 12/28/24 21:25 NEEDED PRN Maintain IV Site Sodium Chloride 10 ml 11/28/24 21:37 11/28/24 21:38 Sodium Chloride 0.9% 10ml Syr (Rad Only) IV 12/28/24 21:36 10 ml NEEDED PRN Administration Maintain IV Site Sodium Chloride 10 ml 11/28/24 22:36 Sodium Chloride 0.9% 10ml Vial IV 12/28/24 22:35 NEEDED PRN to Dilute Lorazepam inj Discontinued Medications Generic Name Dose Route Start Last Admin Trade Name Freq PRN Reason Stop Dose Admin Levetiracetam 4,500 mg/ Sodium 145 mls @ 290 mls/hr 11/28/24 22:36 11/28/24 22:40 Chloride IV 11/28/24 22:37 290 mls/hr ONCE ONE Administration Iopamidol 80 ml 11/28/24 21:37 11/28/24 21:38 Iopamidol-370 (76%);100ml Bottle IV 11/28/24 21:38 80 ml ONCE ONE Administration Lorazepam 2 mg 11/28/24 22:36 11/28/24 22:36 Lorazepam 2mg/Ml Vial IV 11/28/24 22:37 2 mg ONCE ONE Administration Ondansetron HCl 4 mg 11/28/24 22:36 11/28/24 22:40 Ondansetron 4mg/2ml Vial IV 11/28/24 22:37 4 mg ONCE ONE Administration Sodium Chloride 50 ml 11/28/24 21:37 11/28/24 21:38 0.9 % Sodium Chloride 50 Ml Vial IV 11/28/24 21:38 50 ml ONCE ONE Administration ORDERS Category Date Time Status CT angio head Stat Cat Scan 11/28/24 21:[address] angio neck Stat Cat Scan 11/28/24 21:[address] head/brain wo con Stat Cat Scan 11/28/24 21:27 Completed XR chest portable Stat Exams 11/28/24 21:27 Completed Activated Partial Thrombo Time Stat Lab 11/28/24 21:20 Completed Complete Blood Count Auto Diff Stat Lab 11/28/24 21:20 Completed Comprehensive Metabolic Panel Stat Lab 11/28/24 21:20 Completed Drug Screen,Urine Stat Lab 11/28/24 21:27 Ordered Ethyl Alcohol Stat Lab 11/28/24 21:20 Completed HIV Combo Stat Lab 11/28/24 21:33 Received Hepatitis C Ab Qual. W/ RFX Stat Lab 11/28/24 21:33 Received Lipid Panel Stat Lab 11/28/24 21:20 Completed POC Glucose,Bedside Routine Lab 11/28/24 21:43 Completed Prothrombin Time INR Stat Lab 11/28/24 21:20 Completed Troponin I Q3H Lab 11/29/24 00:30 Ordered Troponin I Q3H Lab 11/29/24 03:30 Ordered Troponin I Stat Lab 11/28/24 21:20 Completed Urinalysis and Microscopic Stat Lab 04/28/25 21:27 Ordered ECG Data Tracing #1: I reviewed this ECG and interpreted as documented below: Normal sinus rhythm at a rate of 82, QTc 428, left axis deviation, no STEMI Medical Decision Narrative: In summary, this 84-year-old male with a history of hypertension, insulin- dependent diabetes, clubfoot presents to the emergency department today as a stroke alert. On initial evaluation patient is afebrile, hypertensive with SBP in the 170s, NIH of 8.. Differential diagnosis includes but is not limited to acute ischemic stroke, large vessel occlusion, intracranial hemorrhage, hypoglycemia, intracranial mass, arrhythmia, electrolyte abnormality. Based on these concerns, I ordered CBC, CMP, troponin, EKG, CT head, CTAs of the head and neck, lipid panel, coagulation studies, chest x-ray. The initial report that patient's last known normal was 7 PM. He would have been within the window for thrombolytics if this were the case as he was not anticoagulated and had no other contraindications. Suspected an acute ischemic stroke given his aphasia and NIH. No acute intracranial hemorrhage on my independent interpretation of CT head. Consulted [facility] neurology who was in agreement that patient sounded like a thrombolytics candidate if this were the case. Agreed with administration of TNK if we could confirm last known normal and confirmed that there were no contraindications. Plan to transfer to [facility] for further management of stroke. I then got multiple conflicting stories from the jail staff and patient's . Patient's stated that she spoke to him on the phone at 3:30 PM and that he was not his self. This then would have been his last known normal as we could not confirm otherwise. This was explained to the patient as well as the reasoning regarding trying to determine the definitive last known normal. It was felt that the risks of administering thrombolytic medication at this time outweigh the benefits. Patient had no large vessel occlusion amenable to intervention. Called [facility] back and patient was ultimately accepted as a transfer to the floor. ECG personally interpreted as noted above. Labs personally reviewed demonstrate white blood cell count of 7, hemoglobin of 8.2, baseline renal function with a creatinine of 1.70, glucose of 231, troponin of 0.10. XR personally interpreted demonstrates bibasilar opacities. While awaiting transport to [facility], the patient had a generalized tonic-clonic seizure. This lasted about 1 minute and then terminated spontaneously. Patient was then administered 2 mg of IV Ativan and loaded with Keppra 4.5 g. He had no further seizures after this and was ultimately transported to [facility] via [facility] ambulance for further care. Critical Care Critical Care Time Critical Care Time: Yes Attestation: On 11/28/24, the high probability of a clinically significant, sudden or life threatening deterioration of the following system(s) required my full and direct attention, intervention and personal management. The time I documented below is in addition to time spent performing reported procedures but includes the following listed in this critical care notation. Total Time Total Critical Care Time: 60
[2024-11-28 21:40] LABS: Basophils % 0.4 % (0.1-2.0); Eosinophils # 0.1 Kmm3 (0.0-0.4); Eosinophils % 1.3 % (0.1-12.0); Hemoglobin 8.2 g/dL (14.1-18.0); Lymphocytes # 0.8 K/mm3 (0.7-4.5); Lymphocytes % 12.1 % (10-50); Mean Corpuscular HGB Conc 32.8 g/dL (31.8-35.4); Mean Corpuscular Volume 85.3 fl (80-94); Mean Platelet Volume 10.2 fl (7.4-10.4); Monocytes # 0.5 K/mm3 (0.1-1.0); Monocytes % 6.6 % (1.7-9.3); Neutrophils # 5.5 K/mm3 (1.8-7.8); Neutrophils % 79.2 % (37.0-80.0); Nucleated Red Blood Cells # 0 10^3/uL; Nucleated Red Blood Cells % 0 %; Platelet Count 315 K/mm3 (142-424); Red Blood Count 2.93 M/mm3 (4.60-6.20); Red Cell Distribution Width-SD 43.5 fL
[2024-11-28 21:43] LABS: Albumin Level 2.6 g/dl (3.5-5.0); Chloride 99 mmol/L (98-107); Potassium 3.3 mmoL/L (3.5-5.1); Sodium 133 mmol/L (136-145)
[2024-11-28 21:45] VITALS: BP 160/62
[2024-11-28 21:46] VITALS: BP 158/66
[2024-11-28 21:46] LABS: Alanine Aminotransferase 17 U/L (12-78); Albumin/Globulin Ratio 0.7 (1.1-1.8); Alkaline Phosphatase 154 U/L (38-126); Anion Gap 9.3 mEq/L (5-15); Aspartate Amino Transferase 20 U/L (17-59); Bilirubin,Total 0.2 mg/dl (0.2-1.3); Blood Urea Nitrogen 42 mg/dl (9-20); Calcium 7.9 mg/dl (8.4-10.2); Carbon Dioxide 28 mmol/L (22.0-30.0); Cholesterol 112 mg/dl (140-200); Estimated Glomerular Filt Rate 39 ml/min (>60); GFR (African American) 47 ML/MIN (>60); Globulin 3.5 g/dL (1.3-3.2); Glucose 231 mg/dl (74-100); Total Protein,Serum 6.1 g/dl (6.3-8.2); Triglycerides 46 mg/dl (30-150); VLDL Cholesterol 9 mg/dL (0-40)
[2024-11-28 21:47] LABS: Chol/HDL Ratio 2.6 (1-3.5); HDL Cholesterol 43 mg/dl (40-60); INR 1.07 (0.9-1.1); Prothrombin Time 11.9 seconds (10.1-12.5)
--- NOTE | 2024-11-28 21:47 | ECG_ITS ---
APPROVED REPORT Exam: Resting ECG HR:82 bpm ECG Measurements Heart Rate 82 AXES WY 131 P 208 QRSd 108 QRS -34 QT 389 T -3 QTc 428 Conclusion ECTOPIC ATRIAL RHYTHM LEFT AXIS DEVIATION [QRS AXIS < -30] INCOMPLETE RIGHT BUNDLE BRANCH BLOCK [90+ ms QRS DURATION, TERMINAL R IN V1/V2, 40+ ms S IN I/aVL/V4/V5/V6] MINIMAL ST DEPRESSION [0.025+ mV ST DEPRESSION] ABNORMAL ECG Electronically signed by : Guy Ross, 11/29/2024 01:03:14
--- NOTE | 2024-11-28 21:49 | PC.NURSE ---
Called [facility] for a patient transfer per . I transfered the phone call to him and he is on the phone with stroke navigator now.
[2024-11-28 21:55] LABS: POC Glucose,Bedside 261 (70-110)
[2024-11-28 21:58] LABS: Direct LDL Cholesterol 40.69 mg/dL (100-129)
[2024-11-28 22:02] VITALS: BP 175/74; PULSE 82; RESP 19; TEMP 36.8; O2SAT 98; BMI 26.7
[2024-11-28 22:05] LABS: Ethyl Alcohol < 10 mg/dl (0-10)
[2024-11-28] MEDS: LORazepam 2MG/ML VIAL 2 MG IV (22:36)
[2024-11-28] MEDS: ONDANSETRON 4MG/2ML VIAL 4 MG IV (22:40)
[2024-11-28] MEDS: levETIRAcetam 4,500 MG in 0.9 % SODIUM CHLORIDE 100 ML 290 MG IV (22:40)
--- NOTE | 2024-11-28 23:11 | PC.NURSE ---
Report called to ANDREA Malave at [facility]. [place] . Spoke with Lillian, patient , who states that patient will remain a FULL CODE in route to [facility], and she will reevaluate patient plan of care/code status once he gets to [facility].
[2024-11-28 23:16] LABS: HIV Combo NEGATIVE (Negative)
[2024-11-28 23:29] VITALS: BP 150/65; PULSE 77; RESP 17; TEMP 37.3; O2SAT 96
[2024-11-29 04:25] LABS: Hepatitis C Ab Qual. W/ RFX NEGATIVE (Negative)
== END 2024-11-28 23:30 | disposition short-term general hospital (02) ==
PROVIDERS: Emergency Provider Student in an Organized Health Care Education/Training Program
DX: I63.9 Cerebral infarction, unspecified (principal); R47.01 Aphasia; R56.9 Unspecified convulsions; R29.708 NIHSS score 8; I10 Essential (primary) hypertension; Z11.59 Encounter for screening for other viral diseases; Z11.4 Encounter for screening for human immunodeficiency virus [HIV]
CPT/HCPCS: 70450; 70496; 70498; 71045; 80053; 80061; 80320; 82962; 84484; 85025; 85610; 85730; 86803; 87389; 93005; 96374; 96375; 99291; J1953; J2060; J2405; Q9967

== ENCOUNTER 2024-12-13 11:06 | Outpatient (CLI) | payer MEDICARE, SELFPAY ==
[2024-12-13 11:20] VITALS: BP 175/73; PULSE 85; RESP 18; O2SAT 96
[2024-12-13] MEDS: IRON SUCROSE COMPLEX 200 MG in 0.9 % SODIUM CHLORIDE 100 ML 220 MG IV (11:20)
[2024-12-13] MEDS: SODIUM CHLORIDE 0.9% 50ML BAG 50 ML IV (11:20)
[2024-12-13] MEDS: SODIUM CHLORIDE 0.9% 10ML FLUSH SYRINGE 10 ML IV (11:20)
[2024-12-13 12:05] VITALS: BP 152/76; PULSE 77; RESP 18; O2SAT 96
== END 2024-12-13 12:05 | disposition home or self-care (01) ==
LOC: INF 11:08
PROVIDERS: PCP Family Medicine; Visit Provider Family Medicine
DX: D50.9 Iron deficiency anemia, unspecified (principal)
CPT/HCPCS: 96365; J1756

== ENCOUNTER 2024-12-15 10:56 | Outpatient (CLI) | payer MEDICARE, SELFPAY ==
[2024-12-15] MEDS: SODIUM CHLORIDE 0.9% 50ML BAG 50 ML IV (11:16)
[2024-12-15] MEDS: IRON SUCROSE COMPLEX 200 MG in 0.9 % SODIUM CHLORIDE 100 ML 220 MG IV (11:16)
[2024-12-15 11:20] VITALS: BP 105/58; PULSE 71; RESP 18; TEMP 36.8; O2SAT 99
[2024-12-15 11:50] VITALS: BP 144/81; PULSE 90; RESP 18; TEMP 36.8; O2SAT 98
== END 2024-12-15 12:00 | disposition home or self-care (01) ==
LOC: INF 10:58
PROVIDERS: PCP Family Medicine; Visit Provider Family Medicine
DX: D64.9 Anemia, unspecified (principal)
CPT/HCPCS: 96365; J1756

== ENCOUNTER 2024-12-22 11:04 | Outpatient (CLI) | payer MEDICARE, SELFPAY ==
[2024-12-22 11:29] VITALS: BP 161/91; PULSE 102; RESP 20; TEMP 36.6; O2SAT 98
[2024-12-22] MEDS: SODIUM CHLORIDE 0.9% 50ML BAG 50 ML IV (11:29)
[2024-12-22] MEDS: IRON SUCROSE COMPLEX 200 MG in 0.9 % SODIUM CHLORIDE 100 ML 220 MG IV (11:29)
[2024-12-22] MEDS: SODIUM CHLORIDE 0.9% 10ML FLUSH SYRINGE 10 ML IV (11:29)
[2024-12-22 12:10] VITALS: BP 155/82; PULSE 91; RESP 20; O2SAT 99
== END 2024-12-22 12:10 | disposition home or self-care (01) ==
LOC: INF 11:05
PROVIDERS: PCP Family Medicine; Visit Provider Family Medicine
DX: D50.9 Iron deficiency anemia, unspecified (principal)
CPT/HCPCS: 96365; J1756

== ENCOUNTER 2024-12-23 12:16 | Outpatient (CLI) | payer MEDICARE, SELFPAY ==
[2024-12-23 12:28] LABS: Microscopic, Urine URINE MICROSCOPIC (MICROSCOPIC)
[2024-12-23 12:33] LABS: Basophils % 0.1 % (0.1-2.0); Eosinophils % 0.1 % (0.1-12.0); Hematocrit 25.6 % (42.0-52.0); Hemoglobin 8.2 g/dL (14.1-18.0); Immature Granulocytes # 0.03 10^3uL; Immature Granulocytes % 0.4 %; Lymphocytes # 0.9 K/mm3 (0.7-4.5); Lymphocytes % 12.1 % (10-50); Mean Corpuscular Hemoglobin 27.1 pg (27.0-31.2); Mean Corpuscular Volume 84.5 fl (80-94); Mean Platelet Volume 9.7 fl (7.4-10.4); Monocytes # 0.4 K/mm3 (0.1-1.0); Monocytes % 5.7 % (1.7-9.3); Neutrophils % 81.6 % (37.0-80.0); Nucleated Red Blood Cells # 0 10^3/uL; Nucleated Red Blood Cells % 0 %; Platelet Count 430 K/mm3 (142-424); Red Blood Count 3.03 M/mm3 (4.60-6.20); Red Cell Distribution Width 15.3 % (11.5-17.5); Red Cell Distribution Width-SD 47.2 fL; White Blood Count 7.3 K/mm3 (4.8-10.8)
[2024-12-23 12:40] LABS: Appearance,Urine CLEAR (Clear); Bilirubin,Urine Negative (Negative); Blood, Urine 1+ (Negative); Color,Urine YELLOW (Yellow); Glucose,Urine (UA) Negative (Negative); Ketones,Urine Negative (Negative); Leukocyte Esterase,Urine 2+ (Negative); Nitrate,Urine Negative (Negative); Protein,Urine 2+ (Negative); Specific Gravity, Urine 1.025 (1.005-1.030)
[2024-12-23 12:59] LABS: Bacteria,Urine 3+ /lpf; Fine Granular Casts,Urine Occasional #/lpf (0); WBC,Urine 50-100 #/hpf (0-3)
[2024-12-23 13:12] LABS: Alanine Aminotransferase 40 U/L (12-78); Albumin Level 2.2 g/dl (3.5-5.0); Albumin/Globulin Ratio 0.7 (1.1-1.8); Alkaline Phosphatase 175 U/L (38-126); Aspartate Amino Transferase 44 U/L (17-59); Bilirubin,Total 0.4 mg/dl (0.2-1.3); Blood Urea Nitrogen 37 mg/dl (9-20); Carbon Dioxide 27 mmol/L (22.0-30.0); Chloride 105 mmol/L (98-107); Chol/HDL Ratio 2.4 (1-3.5); Cholesterol 66 mg/dl (140-200); Estimated Glomerular Filt Rate 58 ml/min (>60); GFR (African American) 70 ML/MIN (>60); Globulin 3.1 g/dL (1.3-3.2); Glucose 154 mg/dl (74-100); HDL Cholesterol 28 mg/dl (40-60); Sodium 134 mmol/L (136-145); Total Protein,Serum 5.3 g/dl (6.3-8.2); Triglycerides 38 mg/dl (30-150); VLDL Cholesterol 8 mg/dL (0-40)
[2024-12-23 13:26] LABS: Anion Gap 5.9 mEq/L (5-15); Potassium 3.9 mmoL/L (3.5-5.1)
[2024-12-23 13:27] LABS: Direct LDL Cholesterol < 30.00 mg/dL (100-129)
[2024-12-23 13:55] LABS: Hemoglobin A1C 6.5 % (4.0-6.0)
== END 2024-12-23 23:59 | disposition home or self-care (01) ==
LOC: LAB.DROPOF 12:17
PROVIDERS: PCP Family Medicine; Visit Provider Family Medicine
DX: I12.9 Hypertensive chronic kidney disease with stage 1 through stage 4 chronic kidney disease, or unspecified chronic kidney disease (principal); N18.4 Chronic kidney disease, stage 4 (severe); D51.9 Vitamin B12 deficiency anemia, unspecified; D63.1 Anemia in chronic kidney disease; E11.42 Type 2 diabetes mellitus with diabetic polyneuropathy; E78.5 Hyperlipidemia, unspecified; E83.42 Hypomagnesemia; E87.6 Hypokalemia; I87.2 Venous insufficiency (chronic) (peripheral); K21.9 Gastro-esophageal reflux disease without esophagitis; R53.81 Other malaise; R60.0 Localized edema; Z89.421 Acquired absence of other right toe(s); Z91.81 History of falling; Z79.4 Long term (current) use of insulin
CPT/HCPCS: 80053; 80061; 81001; 83036; 85025; 87086; 87088; 87186

== ENCOUNTER 2024-12-27 11:09 | Outpatient (CLI) | payer MEDICARE, SELFPAY ==
[2024-12-27] MEDS: IRON SUCROSE COMPLEX 200 MG in 0.9 % SODIUM CHLORIDE 100 ML 220 MG IV (11:25)
[2024-12-27] MEDS: SODIUM CHLORIDE 0.9% 10ML FLUSH SYRINGE 10 ML IV (11:26)
[2024-12-27] MEDS: SODIUM CHLORIDE 0.9% 50ML BAG 50 ML IV (11:26)
[2024-12-27 11:30] VITALS: BP 190/85; PULSE 78; RESP 18; TEMP 36.8; O2SAT 99
[2024-12-27 12:10] VITALS: BP 184/79; PULSE 76
== END 2024-12-27 12:10 | disposition home or self-care (01) ==
LOC: INF 11:10
PROVIDERS: PCP Family Medicine; Visit Provider Family Medicine
DX: D50.9 Iron deficiency anemia, unspecified (principal)
CPT/HCPCS: 96365; J1756

== ENCOUNTER 2024-12-28 07:18 | Outpatient (CLI) | payer MEDICARE, SELFPAY ==
[2024-12-28 07:29] LABS: Basophils % 0.3 % (0.1-2.0); Eosinophils # 0.3 Kmm3 (0.0-0.4); Eosinophils % 2.4 % (0.1-12.0); Hematocrit 24.3 % (42.0-52.0); Hemoglobin 7.8 g/dL (14.1-18.0); Immature Granulocytes # 0.08 10^3uL; Immature Granulocytes % 0.8 %; Lymphocytes # 1.7 K/mm3 (0.7-4.5); Lymphocytes % 16.6 % (10-50); Mean Corpuscular HGB Conc 32.1 g/dL (31.8-35.4); Mean Corpuscular Hemoglobin 27.5 pg (27.0-31.2); Mean Corpuscular Volume 85.6 fl (80-94); Mean Platelet Volume 9.6 fl (7.4-10.4); Monocytes # 0.7 K/mm3 (0.1-1.0); Monocytes % 7.2 % (1.7-9.3); Neutrophils # 7.4 K/mm3 (1.8-7.8); Neutrophils % 72.7 % (37.0-80.0); Nucleated Red Blood Cells # 0 10^3/uL; Nucleated Red Blood Cells % 0 %; Platelet Count 402 K/mm3 (142-424); Red Blood Count 2.84 M/mm3 (4.60-6.20); Red Cell Distribution Width 15.6 % (11.5-17.5); Red Cell Distribution Width-SD 48.3 fL; White Blood Count 10.2 K/mm3 (4.8-10.8)
[2024-12-28 07:43] LABS: Alanine Aminotransferase 60 U/L (12-78); Albumin Level 2.1 g/dl (3.5-5.0); Albumin/Globulin Ratio 0.7 (1.1-1.8); Alkaline Phosphatase 172 U/L (38-126); Anion Gap 6.1 mEq/L (5-15); Aspartate Amino Transferase 41 U/L (17-59); Bilirubin,Total 0.3 mg/dl (0.2-1.3); Blood Urea Nitrogen 27 mg/dl (9-20); Calcium 7.7 mg/dl (8.4-10.2); Carbon Dioxide 29 mmol/L (22.0-30.0); Chloride 105 mmol/L (98-107); Chol/HDL Ratio 2.6 (1-3.5); Cholesterol 57 mg/dl (140-200); Estimated Glomerular Filt Rate 58 ml/min (>60); GFR (African American) 70 ML/MIN (>60); Glucose 71 mg/dl (74-100); HDL Cholesterol 22 mg/dl (40-60); Potassium 4.1 mmoL/L (3.5-5.1); Sodium 136 mmol/L (136-145); Total Protein,Serum 5.1 g/dl (6.3-8.2); Triglycerides 29 mg/dl (30-150); VLDL Cholesterol 6 mg/dL (0-40)
[2024-12-28 07:55] LABS: Direct LDL Cholesterol < 30.00 mg/dL (100-129)
[2024-12-28 10:49] LABS: Hemoglobin A1C 6.6 % (4.0-6.0)
== END 2024-12-28 23:59 | disposition home or self-care (01) ==
PROVIDERS: PCP Family Medicine; Visit Provider Family Medicine
DX: D64.9 Anemia, unspecified (principal); E11.9 Type 2 diabetes mellitus without complications
CPT/HCPCS: 36415; 80053; 80061; 83036; 85025

== ENCOUNTER 2024-12-29 10:52 | Outpatient (CLI) | payer MEDICARE, SELFPAY ==
[2024-12-29] MEDS: SODIUM CHLORIDE 0.9% 50ML BAG 50 ML IV (11:12)
[2024-12-29] MEDS: IRON SUCROSE COMPLEX 200 MG in 0.9 % SODIUM CHLORIDE 100 ML 220 MG IV (11:12)
[2024-12-29 11:15] VITALS: BP 182/77; PULSE 98; RESP 17; O2SAT 98
[2024-12-29 11:50] VITALS: BP 190/91; PULSE 91; RESP 17
== END 2024-12-29 12:05 | disposition home or self-care (01) ==
LOC: INF 10:54
PROVIDERS: PCP Family Medicine; Visit Provider Family Medicine
DX: D50.9 Iron deficiency anemia, unspecified (principal)
CPT/HCPCS: 96365; J1756

== ENCOUNTER 2025-02-05 17:16 | Emergency (ER) | payer MEDICARE, SELFPAY ==
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
[2025-02-05] VITALS (16 sets, daily range): BP systolic 170–209; BP diastolic 69–100; PULSE 68–84; RESP 12–16; TEMP 37.1; O2SAT 97–99; BMI 23.4
--- NOTE | 2025-02-05 17:21 | XR_ITS ---
PROCEDURE INFORMATION: Exam: XR Left Forearm Exam date and time: 02/05/2025 5:58 PM Age: 84 years old Clinical indication: Swelling; Arm, lower; Left; Additional info: Swelling, left proximal forearm TECHNIQUE: Imaging protocol: Radiologic exam of the left forearm. Views: 2 views. COMPARISON: No relevant prior studies available. FINDINGS: Bones/joints: Subtle nondisplaced distal radius fracture at the radiocarpal interval not excluded. Avulsion fracture ulnar styloid process. Chronic avulsion fracture involving the coracoid process of the ulna Soft tissues: Normal. IMPRESSION: Subtle nondisplaced distal radius fracture at the radiocarpal interval not excluded. Avulsion fracture ulnar styloid process
--- NOTE | 2025-02-05 17:21 | XR_ITS ---
PROCEDURE INFORMATION: Exam: XR Left Foot Exam date and time: 02/05/2025 5:58 PM Age: 84 years old Clinical indication: Other: Wound; Additional info: Heel wound, concern for infection TECHNIQUE: Imaging protocol: Radiologic exam of the left foot. Views: 1 or 2 views. COMPARISON: No relevant prior studies available. FINDINGS: Bones/joints: Shaggy border of the posterior and plantar calcaneus could be related to osteomyelitis. There is postsurgical changes in the distal talus. There is arthrodesis about the ankle joint. Soft tissues: Soft tissue swelling diffusely. Tiny lucencies in the heel soft tissues posteriorly could reflect soft tissue gas. IMPRESSION: Shaggy border of the posterior and plantar calcaneus could be related to osteomyelitis. Soft tissue swelling diffusely. Tiny lucencies in the heel soft tissues posteriorly could reflect soft tissue gas. Recommend CT to further evaluate these findings
--- NOTE | 2025-02-05 17:22 | ED_ITS ---
Discharge Plan Disposition Patient Disposition: Xfer Short-Term Hosp Prescriptions Prescriptions: No Action atorvastatin 40 mg tablet 40 mg PO DAILY levetiracetam [Keppra] 500 mg tablet 500 mg PO BID insulin aspart U-100 [Novolog FlexPen U-100 Insulin] 100 unit/mL (3 mL) insulin pen 1 sliding scale dose SQ USEASDIRECTD insulin glargine [Lantus Solostar U-100 Insulin] 100 unit/mL (3 mL) insulin pen 5 unit SQ HS omeprazole 20 mg capsule,delayed release(DR/EC) 20 mg PO DAILY aspirin 81 mg Tablet,Chewable 81 mg PO DAILY Referrals Follow up/Referrals: Provider,Referral, MD [Primary Care Provider, Medical] - See instructions Clinical Impressions Clinical Impression: Osteomyelitis Stand Alone Forms Stand Alone Forms: Transfer Record - ED Instructions Patient Instructions: DI for Laceration Repair Print Language Print Language: Hebrew Discharge ED Provider: Lenny Marsh General Adult HPI General Chief complaint: Wound/Laceration Stated complaint: Foot wound Time Seen by Provider: 02/05/25 17:21 History of Present Illness HPI narrative: Tyson Hawley is a 84M with a past medical history of stroke, CKD, diabetes, hypertension who presents to the emergency department from [facility] for concern for a wound to his left heel. Reportedly, patient has had a wound to his left heel for 2 months and is nonambulatory at baseline. Reportedly, halfway staff noticed maggots in the wound today and stated that the wound care doctor is not available today, so they sent him here. Patient denies any recent fevers. He does state that the area is mildly painful today. He also has an area of swelling to his left forearm and believes that that is where he rolls on that side often. Related Data Home Medications ?Medication ?Instructions ?Recorded ?Confirmed aspirin 81 mg chewable tablet 81 mg PO DAILY 11/11/24 01/25/25 omeprazole 20 mg capsule,delayed 20 mg PO DAILY 01/25/25 release atorvastatin 40 mg tablet 40 mg PO DAILY 12/20/2401/02 insulin aspart U-100 100 unit/mL 1 sliding scale dose SQ 12/20/24 01/25/25 (3 mL) subcutaneous pen (Novolog USEASDIRECTD FlexPen U-100 Insulin aspart) levetiracetam 500 mg tablet 500 mg PO BID 12/20/24 (Keppra) insulin glargine 100 unit/mL (3 5 unit SQ HS 12/21/24 01/25/25 mL) subcutaneous pen (Lantus Solostar U-100 Insulin) Allergies Allergy/AdvReac Type Severity Reaction Status Date / Time No Known Allergies Allergy Verified 01/25/25 09:34 [facility] Disclaimer: The information contained in this section may have been updated after the patient was seen, as this information can be updated by other users. Medical History Hyperlipidemia Stroke Seizure History of falling Acquired absence of other right toe(s) terminal system operator (current) use of insulin Localized edema Gastro-esophageal reflux disease without esophagitis Venous insufficiency (chronic) (peripheral) Hypokalemia Vitamin B12 deficiency anemia, unspecified Callus of foot Encounter for wound care Pre-ulcerative calluses Scalp lesion Pain due to onychomycosis of toenail Diabetic foot Anemia Partial traumatic amputation of right foot GERD (gastroesophageal reflux disease) Hypertension Onychomycosis Diabetes mellitus Surgical History 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 Family History Other Coronary artery disease Diabetes Stroke Social History Smoking Status: Former smoker tobacco type: cigarettes alcohol intake: never substance use type: denies use current occupational status: retired Travel in the last 8 weeks?: None household members: spouse housing: house Have you lived/traveled outside [place] in past 30 days?: No Contact w/someone who lives/traveled outside [place] past 30 days?: No Exposure to someone with infectious disease in past 14 days?: No Do you have a fever (greater than 100.4 F or 38 C)?: No Have you tested positive for COVID-19?: No Exposed to someone with COVID-19 in past 14 days?: No Do you have a sore throat?: No Do you have a cough?: No Do you have any weakness?: No Do you have any diarrhea?: No Are you experiencing any unusual bleeding?: No Do you have any muscle aches/pain?: No Do you have any abdominal pain?: No Are you experiencing loss of taste or smell?: No Other Medical History Have you received the Flu Vaccine for this season: No Have you received the Pneumonia Vaccine: Yes ROS Obtained: Yes Systems reviewed as appropriate & no additional complaints except as documented Physical Exam General General appearance: alert and in no apparent distress Head Head exam: atraumatic Eye Eye exam: Present normal appearance ENT ENT exam: Present normal external ear exam Neck Neck exam: Present full ROM Chest Chest inspection: Present symmetric chest wall rise Respiratory Respiratory exam: Present normal lung sounds bilaterally; Absent respiratory distress Cardiovascular Cardiovascular exam: Present regular rate and normal rhythm Abdominal Exam Abdominal exam: Present soft; Absent tenderness or guarding exam: Present deferred Extremities Exam Extremities exam: Present normal inspection and other (Left upper extremity: Swelling/bogginess to the proximal forearm. Nontender. LLE: Ulcerative wound to the left heel. No maggots appreciated at this time. Granulation tissue present. Some mild erythema around the margins of the wound. No necrotic tissue. Chronic appearing ulceration to the dis) Back Exam Back exam: Present normal inspection Neurological Exam Neurological exam: Present alert and oriented X3 Psychiatric Psychiatric exam: Present normal affect Skin Skin exam: Present warm and dry Medical Decision Making Medical Records Screening: Per USPSTF and CDC recommendations, given the prevalence of disease in our region, it is our hospital?s policy to screen for HIV and viral Hepatitis for all patients aged 18 and over and those with ongoing risk factors. Juan M Inquiry Pt receiving controlled substance: No Vital Signs: 02/05/25 17:16 02/05/25 17:31 02/05/25 17:59 Temperature 98.7 F Temperature Source Oral Pulse Rate 74 Pulse Rate [Right] 78 Respiratory Rate 12 13 14 Blood Pressure 209/97 H 189/91 H Blood Pressure [Left Arm] 197/88 H Blood Pressure Mean Blood Pressure Mean [Left Arm] 124 Blood Pressure Source Blood Pressure Position 02 Sat by Pulse Oximetry 98 99 Oxygen Delivery Method Room Air 02/05/25 18:00 02/05/25 18:31 02/05/25 19:00 Temperature Temperature Source Pulse Rate 83 84 77 Pulse Rate [Right] Respiratory Rate 16 13 14 Blood Pressure 208/89 H 187/92 H 197/100 H Blood Pressure [Left Arm] Blood Pressure Mean Blood Pressure Mean [Left Arm] Blood Pressure Source Blood Pressure Position 02 Sat by Pulse Oximetry 98 97 97 Oxygen Delivery Method 02/05/25 19:30 02/05/25 19:39 02/05/25 20:00 Temperature Temperature Source Pulse Rate 82 77 76 Pulse Rate [Right] Respiratory Rate 15 16 14 Blood Pressure 205/83 H 200/87 H 185/80 H Blood Pressure [Left Arm] Blood Pressure Mean 123 124 115 Blood Pressure Mean [Left Arm] Blood Pressure Source Blood Pressure Position 02 Sat by Pulse Oximetry 97 98 97 Oxygen Delivery Method 02/05/25 20:31 02/05/25 21:00 02/05/25 21:30 Temperature Temperature Source Pulse Rate 80 79 74 Pulse Rate [Right] Respiratory Rate 15 16 14 Blood Pressure 199/74 H 177/80 H 173/69 H Blood Pressure [Left Arm] Blood Pressure Mean 115 112 103 Blood Pressure Mean [Left Arm] Blood Pressure Source Blood Pressure Position 02 Sat by Pulse Oximetry 97 97 97 Oxygen Delivery Method 02/05/25 22:00 02/05/25 22:31 02/05/25 23:00 Temperature Temperature Source Pulse Rate 73 74 68 Pulse Rate [Right] Respiratory Rate 15 14 16 Blood Pressure 177/73 H 170/71 H 177/69 H Blood Pressure [Left Arm] Blood Pressure Mean 107 104 105 Blood Pressure Mean [Left Arm] Blood Pressure Source Blood Pressure Position 02 Sat by Pulse Oximetry 97 98 98 Oxygen Delivery Method 02/05/25 23:30 02/06/25 00:00 02/06/25 00:30 Temperature Temperature Source Pulse Rate 68 68 68 Pulse Rate [Right] Respiratory Rate 16 15 15 Blood Pressure 177/76 H 184/73 H 182/75 H Blood Pressure [Left Arm] Blood Pressure Mean 96 109 99 Blood Pressure Mean [Left Arm] Blood Pressure Source Blood Pressure Position 02 Sat by Pulse Oximetry 98 99 97 Oxygen Delivery Method 02/06/25 01:00 02/06/25 01:17 Temperature 98.7 F Temperature Source Oral Pulse Rate 68 68 Pulse Rate [Right] Respiratory Rate 15 15 Blood Pressure 177/69 H 177/69 H Blood Pressure [Left Arm] Blood Pressure Mean 105 Blood Pressure Mean [Left Arm] Blood Pressure Source Automatic Cuff Blood Pressure Position Sitting 02 Sat by Pulse Oximetry 98 Oxygen Delivery Method Room Air Lab Data Lab Results 02/05/25 17:10: WBC 8.4, RBC 3.15 L, Hgb 8.9 L, Hct 27.3 L, MCV 86.7, MCH 28.3, MCHC 32.6, RDW 18.1 H, Plt Count 410, MPV 8.9, Neut % (Auto) 67.6, Lymph % (Auto) 13.5, Martin % (Auto) 7.1, Eos % (Auto) 10.6, Baso % (Auto) 0.8, Neut # (Auto) 5.7, Lymph # (Auto) 1.1, Martin # (Auto) 0.6, Eos # (Auto) 0.9 H, Baso # (Auto) 0.1, ESR 82 H, Sodium 132 L, Potassium 3.7, Chloride 95 L, Carbon Dioxide 30, Anion Gap 10.7, BUN 24 H, Creatinine 1.10, Estimated Creat Clear 20, Estimated GFR 64, Est GFR ( Amer) 77, Glucose 150 H, Calcium 8.0 L, Total Bilirubin 0.5, AST 40, ALT 60, Alkaline Phosphatase 258 H, C-Reactive Protein 62.6 H, Total Protein 5.9 L, Albumin 2.3 L, Globulin 3.6 H, Albumin/Globulin Ratio 0.6 L 02/05/25 17:49: VBG pH 7.40, VBG pCO2 44.9, VBG pO2 25.6 L, VBG HCO3 27.0, VBG Total CO2 28.4 H, VBG O2 Saturation 45.9 L, VBG Base Excess 2.2, VBG Lactic Acid 1.4 02/05/25 17:10 02/05/25 17:10 Orders (Tests/Meds): ED MEDICATIONS Discontinued Medications Generic Name Dose Route Start Last Admin Trade Name Deseanq PRN Reason Stop Dose Admin Piperacillin Sod/Tazobactam 100 mls @ 200 mls/hr 02/05/25 22:15 02/05/25 22:17 Sod 4.5 gm/ Sodium Chloride IV 02/15/25 22:14 200 mls/hr Q8H MELO Administration Vancomycin HCl 1,500 mg/ 250 mls @ 125 mls/hr 02/05/25 22:15 02/05/25 23:06 Sodium Chloride IV 02/15/25 22:14 Not Given Q12H MELO Vancomycin HCl 2,000 mg/ 250 mls @ 125 mls/hr 02/05/25 22:30 02/05/25 22:33 Sodium Chloride IV 02/06/25 00:29 125 mls/hr ONCE ONE Administration Iopamidol 120 ml 02/05/25 20:22 02/05/25 20:23 Iopamidol-370 (76%);100ml Bottle IV 02/05/25 20:23 120 ml ONCE ONE Administration Sodium Chloride 40 ml 02/05/25 20:22 02/05/25 20:23 0.9 % Sodium Chloride 50 Ml Vial IV 02/05/25 20:23 40 ml ONCE ONE Administration Sodium Chloride 10 ml 02/05/25 20:22 02/05/25 20:23 Sodium Chloride 0.9% 10ml Syr (Rad Only) IV 03/07/25 20:21 10 ml NEEDED PRN Administration Maintain IV Site ORDERS Category Date Time Status CT foot LT w con Stat Cat Scan 02/05/25 19:29 Completed Foot XR left 2 views [XR foot LT 2V] Stat Exams 02/05/25 17:21 Completed Forearm XR left 2 views [XR forearm LT 2V] Stat Exams 02/05/25 17:21 Completed CBC w/Auto Diff [Complete Blood Count Auto Diff] Stat Lab 02/05/25 17:10 Completed CMP [Comprehensive Metabolic Panel] Stat Lab 02/05/25 17:10 Completed CRP [C-Reactive Protein] Stat Lab 02/05/25 17:10 Completed ESR [Erythrocyte Sedimentation Rate] Stat Lab 02/05/25 17:10 Completed Blood Culture Stat Micro 02/05/25 17:55 Received Wound Culture and Gram Stain Stat Micro 02/05/25 19:41 Received VBG [Venous Blood Gas] Stat RT 02/05/25 17:49 Completed Medical Decision Narrative: Tyson Hawley is a 84M with a past medical history of stroke, CKD, diabetes, hypertension who presents to the emergency department from [facility] for concern for a wound to his left heel. Reportedly, patient has had a wound to his left heel for 2 months and is nonambulatory at baseline. Reportedly, halfway staff noticed maggots in the wound today and stated that the wound care doctor is not available today, so they sent him here. Patient denies any recent fevers. He does state that the area is mildly painful today. He also has an area of swelling to his left forearm and believes that that is where he rolls on that side often. On arrival, patient is hypertensive, heart rate within normal limits, breathing complaint room air with oxygen saturation 97% SpO2. He is alert and oriented. No focal neurological deficits. He has a chronic appearing ulcerative wound to the left heel. No maggots are appreciated at this time. There is some mild erythema around the margins of the wound, however this is consistent with healing changes. He has a chronic appearing healing ulcer to the distal aspect of his left great toe. He also has some bogginess and swelling to the left forearm that is nontender. Remainder of his physical exam is grossly unremarkable as well. Differential diagnosis includes, but is not limited to: Osteomyelitis, cellulitis, sepsis, wound infection, among others. The most morbid conditions were considered and workup was based on these. Workup in the Emergency Department included: Left foot x-ray, left forearm x- ray, CBC, CMP, blood culture, CRP, VBG with lactate Laboratory studies interpreted by me personally. No leukocytosis. Hemoglobin stable. Lactate normal at 1.4. Mild hyponatremia of 132 but otherwise unremarkable nonactionable. No PARI. CRP elevated at 62.6. X-ray imaging interpreted by me personally. Plantar border of the calcaneus is somewhat easy, could be from wound itself versus osteomyelitis. Radiology report reports of shaggy border of the posterior and plantar calcaneus could be related to osteomyelitis. Soft tissue swelling diffusely. Tiny lucencies in the heel soft tissues posteriorly could reflect soft tissue gas. Recommended CT to further evaluate these findings. Will obtain CT with contrast of the left foot to further investigate. CT imaging interpreted by me personally. Erosive changes to the posterior aspect of the calcaneus concerning for osteomyelitis. There is some air in the area of the ulceration noted but no evidence of NSTI. Patient was started on broad-spectrum antibiotics, vancomycin and Zosyn. Discussions were then had with the hospitalist for admission for continued IV antibiotics for osteomyelitis. I discussed it with Dr. Paulino, who recommended transferring the patient to [facility] as we do not have infections disease at this hospital. I then discussed the patient's case with [facility] and they agreed to accept the patient. Critical Care Critical Care Time Critical Care Time: No
--- OUTSIDE RECORDS SUMMARY | 2025-02-05 17:22 | XMS_ITS | Clinical Summary ---
Author Organization [facility] Address [address] [place] [address] Care Team Providers Care Online Activist Name Role Phone Remy Young MD Primary Care Provider + [phone] Medications aspirin 81 MG EC tablet Take 1 tablet (81 mg) by mouth 1 (one) time each day. Active benazepril (Lotensin) 40 MG tablet Take 1 tablet (40 mg) by mouth 1 (one) time each day. Active ferrous sulfate 325 (65 Fe) MG EC tablet Take 1 tablet (325 mg) by mouth 1 (one) time each day with breakfast. Do not crush, chew, or split. Active lovastatin (Altoprev) 20 MG 24 hr tablet Take 1 tablet (20 mg) by mouth every night. Do not crush, chew, or split. Active metFORMIN, OSM, (Fortamet) 1000 MG 24 hr tablet Take 1 tablet (1,000 mg) by mouth 2 (two) times a day with meals. Do not crush, chew, or split. Active metoprolol tartrate (Lopressor) 100 MG tablet Take 1 tablet (100 mg) by mouth 2 (two) times a day. Active omeprazole OTC (PriLOSEC OTC) 20 MG EC tablet Take 1 tablet (20 mg) by mouth 1 (one) time each day. Do not crush, chew, or split. Active terazosin (Hytrin) 5 MG capsule Take 1 capsule (5 mg) by mouth every night. Active triamterene-hyd rochlorothiazid e (Maxzide-25) 37.5-25 MG tablet Take 1 tablet by mouth 1 (one) time each day. Active Encounters Date Type Department Care Team Description 11/28/2024 Orders Only External Location [address] [place] [id number] Guy Ross 11/28/2024 Orders Only External Location [address] [place] [address] Guy Ross 11/28/2024 Orders Only External Location [address] [place] [address] Guy Ross 11/28/2024 Orders Only External Location [address] [place] [address] Guy Ross from Last 3 Months Social History Tobacco Use Types Packs/Day Years Used Date Smoking Tobacco: Former Cigarettes Smokeless Tobacco: Never Tobacco Cessation:Counseling Given: Not Answered Alcohol Use Standard Drinks/Week Comments Never 0 (1 standard drink = 0.6 oz pur e alcohol) Sex and Gender Information Value Date Recorded Sex Assigned at Not on file Legal Sex Male 11:54 AM EDT Gender Identity Not on file Sexual Orientation Not on file Plan of Treatment Health Maintenance Due Date Last Done Comments [facility]-Depression Screening 1941 [facility]-Infant/Child/Adol SDOH Screenings 1941 [facility]- SDOH Screenings 1959 [facility]-Adult SDOH Screenings 1959 [facility]-Zoster Vaccines (1 of 2) 1991 [facility]-RSV Vaccine: 60+ Years or (1 - 1-dose 75+ series) 2016 [id number] Vaccine ( season) 2024 06/26/2021, 12/04/2020, 10/31/2020 [facility]-Influenza Vaccine (#1) 2025 05/12/2022 [facility]-DTaP,Tdap,and Td Vaccines (2 - Td or Tdap) 03/11/2027 03/11/2017 [facility]-Pneumococcal Vaccine: 50+ Years Completed 05/12/2022 HPV Vaccines Aged Out No longer eligi ble based on patient's age to complete this topic [facility]-HIB Vaccines Aged Out No longer e ligible based on patient's age to complete this topic [facility]-Hepatitis A Vaccines Aged Out No longer eligible based on patient's age to complete this topic [facility]-IPV Vaccines Aged Out No longer e ligible based on patient's age to complete this topic [facility]-Rotavirus Vaccines Aged Out No lo nger eligible based on patient's age to complete this topic Procedures Procedure Name Priority Date/Time Associated Diagnosis Comments XR OUTSIDE IMAGES 11/28/2024 9:[address] OUTSIDE IMAGES 11/28/2024 9:[address] OUTSIDE IMAGES 11/28/2024 9:[address] OUTSIDE IMAGES 11/28/2024 9:34 PM EDT from Last 3 Months Results * XR OUTSIDE IMAGES (11/28/2024 9:40 PM EDT) Anatomical Region Laterality Modality Radiographic Lesa ging 11/28/2024 9:40 PM EDT Guy Ross IMG XR PROCEDURES Final Result * CT OUTSIDE IMAGES (11/28/2024 9:36 PM EDT) Only the most recent of3 resultswithin the time period is included. Anatomical Region Laterality Modality Computed Tomogra phy 11/28/2024 9:36 PM EDT Guy Ross IMG CT PROCEDURES Final Result from Last 3 Months Insurance Care Teams Online Activist Relationship Specialty Start Date End Date Remy Young MD [address] [place] [address] PCP - General 05/20/23
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
[2025-02-05 17:28] LABS: Hematocrit 27.3 % (42.0-52.0); Hemoglobin 8.9 g/dL (14.1-18.0); Immature Granulocytes % 0.4 %; Mean Corpuscular HGB Conc 32.6 g/dL (31.8-35.4); Mean Corpuscular Hemoglobin 28.3 pg (27.0-31.2); Mean Corpuscular Volume 86.7 fl (80-94); Nucleated Red Blood Cells % 0 %; Platelet Count 410 K/mm3 (142-424); Red Blood Count 3.15 M/mm3 (4.60-6.20); Red Cell Distribution Width-SD 57.8 fL; White Blood Count 8.4 K/mm3 (4.8-10.8)
[2025-02-05 17:46] LABS: Alanine Aminotransferase 60 U/L (12-78); Albumin Level 2.3 g/dl (3.5-5.0); Albumin/Globulin Ratio 0.6 (1.1-1.8); Alkaline Phosphatase 258 U/L (38-126); Anion Gap 10.7 mEq/L (5-15); Aspartate Amino Transferase 40 U/L (17-59); Bilirubin,Total 0.5 mg/dl (0.2-1.3); Blood Urea Nitrogen 24 mg/dl (9-20); Calcium 8.0 mg/dl (8.4-10.2); Carbon Dioxide 30 mmol/L (22.0-30.0); Chloride 95 mmol/L (98-107); Creatinine Clearance Estimated 20 mL/min (50-200); Creatinine,Serum 1.10 mg/dl (0.66-1.25); Estimated Glomerular Filt Rate 64 ml/min (>60); GFR (African American) 77 ML/MIN (>60); Globulin 3.6 g/dL (1.3-3.2); Glucose 150 mg/dl (74-100); Potassium 3.7 mmoL/L (3.5-5.1); Sodium 132 mmol/L (136-145); Total Protein,Serum 5.9 g/dl (6.3-8.2)
--- NOTE | 2025-02-05 17:49 | PC.NURSE ---
RT notified of VBG
[2025-02-05 17:51] LABS: C-Reactive Protein 62.6 mg/L (0-4)
--- NOTE | 2025-02-05 17:59 | PC.NURSE ---
[facility] [employer]otion[employer], IGOR inserted 18G US IV to R upper arm. second set of blood cultures obtained by IV r/t PT being poor stick.
[2025-02-05 18:36] LABS: Lactate Venous 1.4 mmol/L (0.4-2.0); VBG HCO3 27.0 mmol/L (23-30); VBG PCO2 44.9 mmol/L (35-51); VBG PH 7.40 mmol/L (7.31-7.41); VBG PO2 25.6 mmol/L (28-40)
--- NOTE | 2025-02-05 19:29 | CT_ITS ---
PROCEDURE INFORMATION: Exam: CT Left Lower Extremity With Contrast, Foot Exam date and time: 02/05/2025 8:21 PM Age: 84 years old Clinical indication: Other: Possible osteomyelitis TECHNIQUE: Imaging protocol: CT of the left lower extremity with intravenous contrast was performed. Exam focused on the foot. Radiation optimization: All CT scans at this facility use at least one of these dose optimization techniques: automated exposure control; mA and/or kV adjustment per patient size (includes targeted exams where dose is matched to clinical indication); or iterative reconstruction. Contrast material: ISOVUE; Contrast volume: 120 ml; Contrast route: IV; COMPARISON: CR XR FOOT LT 2V 02/05/2025 5:58 PM FINDINGS: Bones/joints: Poorly defined erosive changes of posterior calcaneal process. No acute fracture. Subtalar and tibiotalar joint effusions. Diffuse osteopenia. Soft tissues: Poorly defined ulceration with scattered air collection overlying posterior calcaneal process. IMPRESSION: Posterior calcaneal process osteomyelitis with overlying soft tissue ulceration.
[2025-02-05] MEDS: SODIUM CHLORIDE 0.9% 10ML SYR (RAD ONLY) 10 ML IV (20:23)
[2025-02-05] MEDS: IOPAMIDOL-370 (76%);100ML BOTTLE 120 ML IV (20:23)
[2025-02-05] MEDS: 0.9 % SODIUM CHLORIDE 50 ML VIAL 40 ML IV (20:23)
[2025-02-05] MEDS: PIPERACILLIN/TAZO 4.5 GM in 0.9 % SODIUM CHLORIDE 100 ML IV (22:17)
--- NOTE | 2025-02-05 22:22 | PC.NURSE ---
Called [facility] regarding transferring this pt
[2025-02-05] MEDS: VANCOMYCIN HCL 2,000 MG in 0.9 % SODIUM CHLORIDE 250 ML 125 MG IV (22:33)
--- NOTE | 2025-02-05 22:53 | PC.NURSE ---
[facility] contcat for an update on PT care. Augustina Lama LPN received update.
[2025-02-06] VITALS: BP 184/73; PULSE 68; RESP 15; O2SAT 99
[2025-02-06 00:30] VITALS: BP 182/75; PULSE 68; RESP 15; O2SAT 97
[2025-02-06 01:00] VITALS: BP 177/69; PULSE 68; RESP 15; O2SAT 98
[2025-02-06 01:17] VITALS: BP 177/69; PULSE 68; RESP 15; TEMP 37.1; O2SAT 98
--- NOTE | 2025-02-08 08:40 | PC.NURSE ---
Wound culture results faxed to [facility] at [phone]
--- NOTE | 2025-02-15 12:16 | PC.NURSE ---
Wound culture results faxed to [facility] at [phone]
--- NOTE | 2025-02-17 11:20 | PC.NURSE ---
pts final culture results faxed to [facility] as the pt was transferred there.
== END 2025-02-06 01:35 | disposition short-term general hospital (02) ==
PROVIDERS: Emergency Provider Student in an Organized Health Care Education/Training Program
DX: M86.9 Osteomyelitis, unspecified (principal); I63.9 Cerebral infarction, unspecified; I87.2 Venous insufficiency (chronic) (peripheral); E11.42 Type 2 diabetes mellitus with diabetic polyneuropathy; E87.6 Hypokalemia; Z87.891 Personal history of nicotine dependence
CPT/HCPCS: 73090; 73620; 73701; 80053; 82803; 85025; 85651; 86140; 87040; 87070; 87077; 87186; 87205; 96365; 96366; 99285; J2543; J3373; J7050; Q9967